=== PATIENT | female | born 1970 | race Caucasian/White ===

== ENCOUNTER 2020-05-23 07:18 | Outpatient (REF) | payer OTHER, SELFPAY ==
[2020-05-23 09:05] LABS: Basophils Percent Auto 0.5 % (0-2); Eosinophils Absolute Auto 0.2 X10*3/uL (0.0-0.4); Eosinophils Percent Auto 3.5 % (0-4); Hematocrit 40.5 % (37-47); Hemoglobin 13.1 g/dl (12.0-16.0); Imm Gran Abs Auto 0.02 X10*3/uL (0.00-0.03); Imm Gran Pct Auto 0.4 % (0.0-0.4); Lymphocytes Percent Auto 35.4 % (20-40); MANUAL DIFF FLAG NO; Mean Corpuscular HGB Conc 32.3 g/dl (31.0-35.0); Mean Platelet Volume 11.8 fL (9.4-12.3); Monocytes Absolute Auto 0.4 X10*3/uL (0.1-1.2); Monocytes Percent Auto 6.4 % (2-11); Neutrophils Percent Auto 53.8 % (45-73); Platelet Count 237 X10*3/uL (160-400); Red Blood Count 4.09 X10*6/uL (4.20-5.50); Red Cell Distribution Width 11.8 % (11.0-16.0); White Blood Count 5.7 X10*3/uL (4.8-10.8)
[2020-05-23 09:27] LABS: Alanine Aminotransferase 11 U/L (0-31); Albumin Level 4.2 g/dL (3.5-5.0); Alkaline Phosphatase 62 U/L (39-117); Anion Gap 12 (12-20); Aspartate Amino Transferase 18 U/L (5-31); Bilirubin Total 0.3 mg/dL (0.0-1.0); Blood Urea Nitrogen 13 mg/dL (9-16); Calcium 9.1 mg/dL (8.4-10.2); Carbon Dioxide 28 mmol/L (22-29); Chloride 104 mmol/L (96-108); Cholesterol 179 mg/dL; Estimated Glomerular Filt Rate > 60; Glucose Fasting 92 mg/dL (60-99); HDL Cholesterol 51 mg/dL; LDL Cholesterol Calculated 110 mg/dl; Potassium 4.8 mmol/l (3.3-5.1); Sodium 139 mmol/L (135-145); Total Protein 7.7 g/dL (6.5-8.0); Triglycerides 92 mg/dL
[2020-05-24 09:31] LABS: Rubella IgG Antibody 3.33 index
== END 2020-05-23 07:19 | disposition home or self-care (01) ==
LOC: HO.LAB 07:18
PROVIDERS: PCP Physician Assistant; Visit Provider Physician Assistant
DX: Z13.1 Encounter for screening for diabetes mellitus (principal); Z13.29 Encounter for screening for other suspected endocrine disorder; Z13.220 Encounter for screening for lipoid disorders; Z01.84 Encounter for antibody response examination
CPT/HCPCS: 36415; 80053; 80061; 84443; 85025; 86735; 86762; 86765

== ENCOUNTER 2020-06-05 10:08 | Outpatient (REF) | payer OTHER, SELFPAY | END 2020-06-05 10:09 | disposition home or self-care (01) | LOC: HO.LAB 10:08 | PROVIDERS: Visit Provider Obstetrics & Gynecology | DX: N90.4 Leukoplakia of vulva (principal) | CPT/HCPCS: 88305; 88312 ==

== ENCOUNTER 2021-04-08 09:07 | Outpatient (REF) | payer OTHER, SELFPAY ==
[2021-04-08 09:38] LABS: Hematocrit 38.1 % (37-47); Hemoglobin 12.6 g/dl (12.0-16.0); Mean Corpuscular HGB Conc 33.1 g/dl (31.0-35.0); Mean Corpuscular Hemoglobin 32.1 pg (27.0-33.0); Mean Corpuscular Volume 96.9 fL (80-98); Mean Platelet Volume 10.9 fL (9.4-12.3); Platelet Count 228 X10*3/uL (160-400); Red Blood Count 3.93 X10*6/uL (4.20-5.50); White Blood Count 5.3 X10*3/uL (4.8-10.8)
[2021-04-08 09:58] LABS: Alanine Aminotransferase 12 U/L (0-31); Albumin Level 4.1 g/dL (3.5-5.0); Alkaline Phosphatase 64 U/L (39-117); Anion Gap 10 (12-20); Aspartate Amino Transferase 19 U/L (5-31); Bilirubin Total 0.4 mg/dL (0.0-1.0); Blood Urea Nitrogen 15 mg/dL (9-16); Calcium 9.1 mg/dL (8.4-10.2); Carbon Dioxide 29 mmol/L (22-29); Chloride 106 mmol/L (96-108); Cholesterol 187 mg/dL; Estimated Glomerular Filt Rate > 60; Glucose Fasting 94 mg/dL (60-99); HDL Cholesterol 48 mg/dL; LDL Cholesterol Calculated 118 mg/dl; Potassium 4.5 mmol/L (3.3-5.1); Sodium 140 mmol/L (135-145); Total Protein 7.7 g/dL (6.5-8.0); Triglycerides 106 mg/dL
[2021-04-08 10:38] LABS: Creatinine Urine 148.74 mg/dL; Microalbum/Creatinine Ratio Ur 17.4 ug/mg cr
[2021-04-09 11:45] LABS: Follicle Stimulating Hormone 55.9 mIU/mL
[2021-04-16 02:46] LABS: Estradiol Free 0.25 pg/mL; Estradiol, Ultrasensitive 12 pg/mL
== END 2021-04-08 09:08 | disposition home or self-care (01) ==
LOC: HO.LAB 09:07
PROVIDERS: PCP Physician Assistant; Visit Provider Physician Assistant
DX: N95.1 Menopausal and female climacteric states (principal); I10 Essential (primary) hypertension
CPT/HCPCS: 36415; 80053; 80061; 82043; 82670; 82681; 83001; 84443; 85027

== ENCOUNTER 2021-06-10 10:25 | Outpatient (REF) | payer OTHER, SELFPAY ==
[2021-06-10 11:08] LABS: Hematocrit 35.9 % (37-47); Hemoglobin 11.8 g/dl (12.0-16.0); Mean Corpuscular HGB Conc 32.9 g/dl (31.0-35.0); Mean Corpuscular Hemoglobin 32.8 pg (27.0-33.0); Mean Corpuscular Volume 99.7 fL (80-98); Mean Platelet Volume 10.9 fL (9.4-12.3); Platelet Count 198 X10*3/uL (160-400); Red Cell Distribution Width 13.2 % (11.0-16.0)
[2021-06-10 11:41] LABS: Anion Gap 12 (12-20); Blood Urea Nitrogen 14 mg/dL (9-16); Calcium 9.3 mg/dL (8.4-10.2); Carbon Dioxide 28 mmol/L (22-29); Chloride 102 mmol/L (96-108); Cholesterol 174 mg/dL; Estimated Glomerular Filt Rate > 60; Glucose Random 84 mg/dL (60-115); HDL Cholesterol 45 mg/dL; LDL Cholesterol Calculated 105 mg/dl; Lipase 116 U/L (8-78); Potassium 4.5 mmol/L (3.3-5.1); Sodium 137 mmol/L (135-145); Triglycerides 123 mg/dL
[2021-06-10 12:04] LABS: TSH reflex Free T4 1.58 uIU/mL (0.32-4.0)
== END 2021-06-10 10:26 | disposition home or self-care (01) ==
LOC: HO.LAB 10:25
PROVIDERS: PCP Physician Assistant; Visit Provider Physician Assistant
DX: I10 Essential (primary) hypertension (principal); K21.9 Gastro-esophageal reflux disease without esophagitis; R74.8 Abnormal levels of other serum enzymes
CPT/HCPCS: 36415; 80048; 80061; 83690; 84443; 85027

== ENCOUNTER 2021-07-17 10:35 | Outpatient (REF) | payer OTHER, SELFPAY ==
[2021-07-17 11:33] LABS: Amylase 177 U/L (28-100); Gamma Glutamyl Transpeptidase 13 U/L (7-33); Lipase 135 U/L (8-78)
[2021-07-17 11:38] LABS: Hemoglobin 12.1 g/dl (12.0-16.0); Mean Corpuscular HGB Conc 32.7 g/dl (31.0-35.0); Mean Corpuscular Hemoglobin 32.4 pg (27.0-33.0); Mean Corpuscular Volume 98.9 fL (80.0-98.0); Mean Platelet Volume 11.8 fL (9.4-12.3); Platelet Count 212 X10*3/uL (160-400); Red Blood Count 3.74 X10*6/uL (4.20-5.50); Red Cell Distribution Width 12.6 % (11.0-16.0); White Blood Count 6.6 X10*3/uL (4.8-10.8)
== END 2021-07-17 10:36 | disposition home or self-care (01) ==
LOC: HO.LAB 10:35
PROVIDERS: PCP Physician Assistant; Visit Provider Physician Assistant
DX: R74.8 Abnormal levels of other serum enzymes (principal); R10.13 Epigastric pain
CPT/HCPCS: 36415; 82150; 82977; 83690; 85027; 87338

== ENCOUNTER → 2021-08-17 12:06 | Outpatient (BNVA) | payer OTHER, SELFPAY | PROVIDERS: PCP Physician Assistant; Referring Provider Physician Assistant; Visit Provider Nurse Practitioner Family ==

== ENCOUNTER 2021-08-18 15:01 | Outpatient (REF) | payer OTHER, SELFPAY ==
[2021-08-24 20:37] LABS: Pancreatic Elastase-1 >500 mcg/g
== END 2021-08-18 15:02 | disposition home or self-care (01) ==
LOC: HO.LNP 15:01
PROVIDERS: Visit Provider Nurse Practitioner Family
DX: R19.7 Diarrhea, unspecified (principal)
CPT/HCPCS: 82656

== ENCOUNTER 2021-09-01 14:45 | Outpatient (REF) | payer OTHER, SELFPAY ==
[2021-09-01 15:58] LABS: Blood Urea Nitrogen 13 mg/dL (9-16); Estimated Glomerular Filt Rate > 60
== END 2021-09-01 14:46 | disposition home or self-care (01) ==
LOC: HO.LAB 14:45
PROVIDERS: PCP Physician Assistant; Visit Provider Nurse Practitioner Family
DX: R10.11 Right upper quadrant pain (principal)
CPT/HCPCS: 36415; 82565; 84520

== ENCOUNTER 2021-09-02 08:27 | Outpatient (REF) | payer OTHER, SELFPAY ==
--- NOTE | ~2021-09-02 | CT_ITS ---
EXAMINATION: CT ABDOMEN AND PELVIS WITH CONTRAST CLINICAL INFORMATION: Abdominal pain COMPARISON: None TECHNIQUE: Multidetector volumetric images were obtained from the superior aspect of the liver through the pubic symphysis following administration 85 mL of Omnipaque 350 intravenous contrast. Sagittal and coronal reformatted images were obtained on the technologist's workstation. Oral contrast: Yes This CT examination was performed using dose optimization techniques as appropriate, variously including the following: *Automated exposure control *Adjustment of mA and/or kV according to patient size (this includes techniques or standardized protocols for targeted exams where dose is matched to indication/reason for exam; i.e. extremities or head) *Use of iterative reconstruction technique DLP: 219 mGy-cm FINDINGS: LUNG BASES: There is a 5 mm calcified right lower lobe nodule probably representing a calcified granuloma. LIVER, GALLBLADDER, AND BILIARY TREE: The liver is normal in size, shape, and attenuation. No focal hepatic lesion or biliary ductal dilatation is present. The gallbladder not seen and has presumably been removed. PANCREAS: Unremarkable. SPLEEN: Unremarkable. ADRENAL GLANDS: Unremarkable. KIDNEYS AND URETERS: The kidneys are normal in size, shape, and attenuation. No hydronephrosis, hydroureter, or calculi seen. No perinephric stranding. BLADDER: Unremarkable. GASTROINTESTINAL TRACT: There is stool throughout the colon questionable for constipation. The small and large bowel are otherwise unremarkable. The appendix is unremarkable. ABDOMINAL WALL: There are small umbilical and left inguinal hernias containing fat. LYMPH NODES: Normal. VASCULAR: Unremarkable. PELVIC VISCERA: There are prominent pelvic vessels, left greater than right, pelvic vessels questionable for pelvic congestion. Uterus and adnexa are unremarkable. OSSEOUS STRUCTURES: Unremarkable. CT/CT abdomen pelvis w con IMPRESSION: Stool throughout the colon questionable for constipation. Prominent left pelvic vessels questionable for pelvic congestion. Fleischner guidelines were followed.
[2021-09-02] MEDS: iohexoL 350 MG/ML 100 ML INFUS..BTL IV (11:15)
[2021-09-02] MEDS: Barium Sulfate Oral (Mocha) 450 ML ORAL.SUSP 900 ML PO (11:17)
--- NOTE | 2021-09-02 11:18 | ECG_ITS ---
Hook-up date: 2021-09-02 11:45:00 Duration: 27:12:00 Test Indications: HX TIA AND CEREBRAL INFARC Medications: [id number] QRS complexes * Ventricular ectopics which represent % of total QRS comp. 2 Supraventricular ectopics which represent <1 % of total QRS comp. * Paced QRS complexs which represent % of total QRS comp. VENTRICULAR ECTOPY * Isolated * Bigeminal Cycles * Couplets * Runs * Beats in Runs * Beats LONGEST at * BPM at :: -- * Beats FASTEST at * BPM at :: -- SUPRAVENTRICULAR ECTOPY 2 Isolated 0 Couplets 0 Runs 0 Beats in Runs * Beats LONGEST at * BPM at :: -- * Beats FASTEST at * BPM at :: -- HEART RATES 59 MIN at 05:24:08 2021-09-03 88 AVG 128 MAX at 11:48:21 2021-09-02 LONGEST RR 1.0480 secs at 00:54:04 2021-09-03 S-T LEVELS Channel 1 - 128 mm at 11:45:00 2021-09-02 - 128 mm at 11:45:00 2021-09-02 Channel 2 - 128 mm at 11:45:00 2021-09-02 - 128 mm at 11:45:00 2021-09-02 Channel 3 - 128 mm at 03:10:41 -- - 128 mm at 03:10:41 Basic rhythm Normal sinus rhythm No long pause or profound bradycardia No dangerous dysrhythm periods Patient did not report any symptoms in the diary Referred By: Stephen Rothman Overread By: KEKE MARTINEZ MD
== END 2021-09-02 08:28 | disposition home or self-care (01) ==
LOC: HO.CT 08:27
PROVIDERS: Visit Provider Nurse Practitioner Family
DX: R00.2 Palpitations (principal); R10.9 Unspecified abdominal pain; R74.8 Abnormal levels of other serum enzymes
CPT/HCPCS: 74177; 93225; 93226; Q9967

== ENCOUNTER → 2021-09-09 12:37 | Outpatient (BNVA) | payer OTHER, SELFPAY | PROVIDERS: PCP Physician Assistant; Visit Provider Obstetrics & Gynecology ==

== ENCOUNTER 2021-09-23 08:07 | Day surgery (SDC) | payer OTHER, SELFPAY ==
[2021-09-18 10:08] VITALS: BMI 22.1
--- NOTE | 2021-09-22 09:56 | HO.ANESPROP2 ---
Documented by User: Makenzie Bazan NP 09/22/21 09:57 HPI - Anesthesia Eval Consult details Narrative: 51yo F for Upper Endoscopy PMFSH Active Problems Active Problems: All Active Problems (Updated 09/09/21 @ 13:20 by Luis Miguel Dunlap MD) BPV (benign positional vertigo) (Acute) Lichen sclerosus (Acute) HTN (hypertension) (Acute) Perimenopause (Acute) CINTIA (generalized anxiety disorder) (Acute) SOB (shortness of breath) (Acute) Post-COVID syndrome (Acute) GERD (gastroesophageal reflux disease) (Acute) Elevated lipase (Acute) Nausea (Acute) Heart palpitations (Acute) Epigastric abdominal pain (Acute) Well woman exam (Acute) Anxiety and depression (Acute) Past Medical History Medical History (Updated 09/22/21 @ 09:56 by Makenzie Bazan NP) Anxiety and depression BPV (benign positional vertigo) GERD (gastroesophageal reflux disease) HTN (hypertension) Vulvar leukoplakia Family History Family History Father No problems noted. Mother No problems noted. Surgical History Surgical History (Updated 09/18/21 @ 10:06 by Kirti Shah RN) H/O tubal ligation Hx of cholecystectomy Hx of colonoscopy Social History Social History Housing: House Alcohol intake: never Patient Tobacco Use Status: Never used Tobacco e-Cigarette/Vaping Use: Never Used Second Hand Smoke Exposure: No Are you DNR?: No Advance Directives: No Advance Directives Information Provided: Yes Advance Directives on File: No service: No Current occupational status: employed Current occupation: [employer] Sexual orientation: Straight/Heterosexual Gender identity: Female Cognitive needs: No Hearing needs: No Vision needs: No Meds Allergies Allergy/AdvReac Type Severity Reaction Status Date / Time No Known Allergies Allergy Verified 09/23/21 08:23 Home Medications Medication Instructions Recorded Confirmed Last Taken Type docusate sodium 100 mg capsule 100 mg PO BEDTIME PRN 09/18/21 09/18/21 Unknown History Exam Exam Date and Time: September 22, 2021 0956 Height,Weight and Vital Signs: Height 5 ft 2 in Weight 54.885 kg Pertinent Lab Results Pertinent Lab Results: Laboratory Tests 10/07/17/21 09/01/21 10:40 10:41 14:57 WBC 6.6 Hgb 12.1 Hct 37.0 Plt Count 212 Sodium 137 Potassium 4.5 Chloride 102 Carbon Dioxide 28 BUN 13 Creatinine 0.80 Narrative Narrative: Holter 08/2021 Basic rhythm Normal sinus rhythm No long pause or profound bradycardia No dangerous dysrhythm periods Patient did not report any symptoms in the diary Assessment and Plan Assessment Anesthesia Assessment: Chart Reviewed Documented by User: Xin Dowell MD 09/23/21 08:57 [facility] Past Medical History Medical History (Updated 09/22/21 @ 09:56 by Makenzie Bazan NP) Anxiety and depression BPV (benign positional vertigo) GERD (gastroesophageal reflux disease) HTN (hypertension) Vulvar leukoplakia Family History Family History Father No problems noted. Mother No problems noted. Family history of problems with anesthesia: No Surgical History Surgical History (Updated 09/18/21 @ 10:06 by Kirti Shah RN) H/O tubal ligation Hx of cholecystectomy Hx of colonoscopy History of Problems with Anesthesia: No Social History Social History Housing: House Alcohol intake: never Patient Tobacco Use Status: Never used Tobacco e-Cigarette/Vaping Use: Never Used Second Hand Smoke Exposure: No Are you DNR?: No Advance Directives: No Advance Directives Information Provided: Yes Advance Directives on File: No service: No Current occupational status: employed Current occupation: [employer] Sexual orientation: Straight/Heterosexual Gender identity: Female Cognitive needs: No Hearing needs: No Vision needs: No Meds Allergies Allergy/AdvReac Type Severity Reaction Status Date / Time No Known Allergies Allergy Verified 09/23/21 08:23 Home Medications Medication Instructions Recorded Confirmed Last Taken Type docusate sodium 100 mg capsule 100 mg PO BEDTIME PRN 09/18/21 09/18/21 Unknown History Exam Airway Mallampati Class: II (Missing a couple teeth laterally) TM Dist: >3cm Neck ROM: Full Heart: rrr Lungs: cta Assessment and Plan Assessment Anesthesia Assessment: Anesthesia Plan Discussed and Chart Reviewed Final Anesthetic Review Family History of Problems with Anesthesia: No History of Problems with Anesthesia: No NPO: Yes ASA Class: II Final Preanesthetic Review: No Changes in Pt Med Stat, Meds/Allgs Chart Reviewed and Consent Obtained/Reviewed Patient Risk: Intermediate Procedure Risk: Intermediate Anesthetic Plan Anesthetic Plan: MAC: Disposition: Standard PACU
[2021-09-23 08:34] VITALS: BP 167/91; PULSE 110; RESP 16; TEMP 36.6; O2SAT 100
[2021-09-23] MEDS: Lactated Ringers 1,000 ML 100 ML IVCONT (08:48)
--- NOTE | 2021-09-23 09:07 | MHC.SHP ---
Pre-Procedural Eval Section A Date of Service: 09/23/21 Section B Chief Complaint: abdominal pain Relevant Family History (Specify if Yes): No Relevant Social History: None Present Medications: see Short Stay Collaborative assessment Medical History: Significant History (Anxiety and depression BPV (benign positional vertigo) GERD (gastroesophageal reflux disease) HTN (hypertension) Vulvar leukoplakia) History of Previous Operations: Relevant previous surgery/procedure and date(s) (H/O tubal ligation Hx of cholecystectomy Hx of colonoscopy) Allergies: Allergies Allergy/AdvReac Type Severity Reaction Status Date / Time No Known Allergies Allergy Verified 09/23/21 08:23 Review of Systems Sugical H&P ROS: Negative: Constitution, Cardiovascular, Respiratory, Neurological, Psychiatric, Hem-Onc, Allergic/Immunologic, Gastrointestinal, Genitourinary, Musculoskeletal, Integumentary, Endocrine and Eyes/Ears/Nose/Throat Exam Surgical H&P Exam: Normal: HEENT, Normal: Heart, Normal: Lungs, Normal: Extremities, Normal: Abdomen, Normal: Skin and Normal: Neurological Plan Diagnosis/Plan: Unchanged I have reviewed the history and physical and performed a pertinent physical examination on my patient. No changes have occurred unless specified.
--- NOTE | 2021-09-23 09:08 | P.BOP_ITS ---
Brief Operative Note Date of Service: 09/23/21 Pre-op diagnosis: abdominal pain Post-op diagnosis: same Procedure: see op note Surgeon: Shoaib Sterling MD Anesthesia: MAC Was an Building Inspector used for this Procedure?: No Estimated blood loss (mL): 0 Condition: stable Disposition: PACU
--- NOTE | 2021-09-23 09:32 | W.PM.OPN ---
Operative Note Operative Note Date of Service: 09/23/21 Narrative: Procedure Description: EGD FLEXIBLE TRANSORAL UPPER GASTROINTESTINAL ENDOSCOPY UPPER ENDOSCOPY Consent: Indications for the procedure and potential complications of bleeding, perforation, reaction to medications and missed diagnosis were discussed with the patient and informed consent was obtained. Instrument: Olympus GIF H 190 J mid size upper endoscope Monitoring: Vital signs and clinical assessment, continuous EKG monitoring, Pulse oximetry, Carbon Dioxide monitoring and blood pressure monitoring were done throughout the procedure. Procedure: The patient was placed in the left lateral decubitis position and pre-procedure medications were administered and a bite block was placed. The endoscope was inserted into the mouth and advanced under direct vision to the third part of duodenum. A careful inspection was made as the upper endoscope was withdrawn including a retroflexed examination of the proximal stomach; Findings and interventions are described below. Findings: Larynx:normal Esophagus: GE junction at 38 cm, diaphragm hiatus at 38 cm, no varices or esophagitis, random esophagus bx taken and from GEJ Stomach: Mild patchy gastric erythema and granularity. Biopsies were obtained. Grade 2 flap valve on retroflexed examination of the cardia. Duodenum: Normal bulb and descending duodenum, bx taken Intervention: Biopsies as noted above Impression/Findings: mild gastritis PLAN: await results, she said she has been doing better recently if h pylori pos then treat
[2021-09-23 09:38] VITALS: BP 92/53; PULSE 86; RESP 16; TEMP 36.6; O2SAT 96
[2021-09-23 09:53] VITALS: BP 119/70; PULSE 82; RESP 16; TEMP 36.6; O2SAT 96
== END 2021-09-23 10:48 | disposition home or self-care (01) ==
PROVIDERS: PCP Physician Assistant; Visit Provider Internal Medicine Gastroenterology
PROC: 0DJ08ZZ Inspection of Upper Intestinal Tract, Via Natural or Artificial Opening Endoscopic (ICD-10-PCS; CPT 43235; principal; 2021-09-23 09:30)
DX: R10.13 Epigastric pain (principal); K29.50 Unspecified chronic gastritis without bleeding; K21.9 Gastro-esophageal reflux disease without esophagitis; K44.9 Diaphragmatic hernia without obstruction or gangrene; R74.8 Abnormal levels of other serum enzymes; I10 Essential (primary) hypertension; N90.4 Leukoplakia of vulva; F32.9 Major depressive disorder, single episode, unspecified; Z90.49 Acquired absence of other specified parts of digestive tract; Z79.899 Other long term (current) drug therapy
CPT/HCPCS: 43239; 88305; 88342

== ENCOUNTER 2021-10-01 10:59 | Outpatient (REF) | payer OTHER, SELFPAY ==
[2021-10-01 11:36] LABS: Hematocrit 36.5 % (37.0-47.0); Hemoglobin 11.9 g/dl (12.0-16.0); Mean Corpuscular HGB Conc 32.6 g/dl (31.0-35.0); Mean Corpuscular Hemoglobin 32.2 pg (27.0-33.0); Mean Corpuscular Volume 98.6 fL (80.0-98.0); Mean Platelet Volume 11.1 fL (9.4-12.3); Platelet Count 210 X10*3/uL (160-400); Red Cell Distribution Width 12.2 % (11.0-16.0); White Blood Count 5.5 X10*3/uL (4.8-10.8)
[2021-10-01 12:02] LABS: Alanine Aminotransferase 16 U/L (0-31); Albumin Level 4.1 g/dL (3.5-5.0); Alkaline Phosphatase 72 U/L (39-117); Anion Gap 10 (12-20); Aspartate Amino Transferase 22 U/L (5-31); Bilirubin Total 0.3 mg/dL (0.0-1.0); Blood Urea Nitrogen 16 mg/dL (9-16); Calcium 9.4 mg/dL (8.4-10.2); Carbon Dioxide 29 mmol/L (22-29); Chloride 106 mmol/L (96-108); Estimated Glomerular Filt Rate > 60; Glucose Fasting 94 mg/dL (60-99); Potassium 4.5 mmol/L (3.3-5.1); Sodium 140 mmol/L (135-145); Total Protein 7.8 g/dL (6.5-8.0)
[2021-10-01 12:23] LABS: TSH reflex Free T4 1.97 uIU/mL (0.32-4.0)
== END 2021-10-01 11:00 | disposition home or self-care (01) ==
LOC: HO.LAB 10:59
PROVIDERS: PCP Physician Assistant; Visit Provider Physician Assistant
DX: I10 Essential (primary) hypertension (principal); R63.4 Abnormal weight loss
CPT/HCPCS: 36415; 80053; 84443; 85027

== ENCOUNTER 2021-10-14 11:32 | Outpatient (REF) | payer OTHER, SELFPAY ==
[2021-10-14 12:37] LABS: Hematocrit 35.9 % (37.0-47.0); Hemoglobin 11.7 g/dl (12.0-16.0); Mean Corpuscular HGB Conc 32.6 g/dl (31.0-35.0); Mean Corpuscular Volume 98.1 fL (80.0-98.0); Mean Platelet Volume 10.8 fL (9.4-12.3); Platelet Count 198 X10*3/uL (160-400); Red Blood Count 3.66 X10*6/uL (4.20-5.50); Red Cell Distribution Width 12.4 % (11.0-16.0); White Blood Count 7.5 X10*3/uL (4.8-10.8)
[2021-10-14 13:19] LABS: Lipase 68 U/L (8-78)
[2021-10-14 14:25] LABS: Amylase 135 U/L (28-100)
== END 2021-10-14 11:33 | disposition home or self-care (01) ==
LOC: HO.LAB 11:32
PROVIDERS: PCP Physician Assistant; Referring Provider Physician Assistant; Visit Provider Nurse Practitioner Family
DX: R74.8 Abnormal levels of other serum enzymes (principal); R19.7 Diarrhea, unspecified; I10 Essential (primary) hypertension; K21.9 Gastro-esophageal reflux disease without esophagitis
CPT/HCPCS: 36415; 82150; 83690; 85027; 99212

== ENCOUNTER 2021-10-15 14:18 | Outpatient (REF) | payer OTHER, SELFPAY ==
--- NOTE | ~2021-10-15 | MM_ITS ---
EXAMINATION: MM SCREENING DIGITAL BREAST TOMOSYNTHESIS, BILATERAL CLINICAL INFORMATION: Screening. Asymptomatic. The lifetime risk of breast cancer based on the Tyrer-Cuzick Model is 6%. COMPARISON: Outside mammography: 03/23/2018, 12/15/2015 TECHNIQUE: Digital breast tomosynthesis is performed in both the craniocaudal and mediolateral oblique views along with computer-aided detection (CAD). Synthesized 2D images are generated from the tomosynthesis. FINDINGS: There are scattered areas of fibroglandular density (ACR BI-RADS breast composition Category b). There are no significant masses, abnormal calcifications, or other abnormalities. Parenchymal pattern is similar to prior outside exams. The axilla and skin contours are unremarkable. There are no significant changes. MM/MM tomosynthesis screening BI IMPRESSION: No mammographic evidence of malignancy. ASSESSMENT: BI-RADS 1: Negative RECOMMENDATION: Routine annual mammography screening. This patient's information was entered into a reminder system with a target due date for their next mammogram.
== END 2021-10-15 14:19 | disposition home or self-care (01) ==
LOC: HO.MAMMO 14:18
PROVIDERS: PCP Physician Assistant; Visit Provider Obstetrics & Gynecology
DX: Z12.31 Encounter for screening mammogram for malignant neoplasm of breast (principal)
CPT/HCPCS: 77063; 77067

== ENCOUNTER 2022-04-23 08:05 | Outpatient (REF) | payer OTHER, SELFPAY ==
[2022-04-23 08:52] LABS: Hematocrit 37.6 % (37.0-47.0); Hemoglobin 12.4 g/dl (12.0-16.0); Mean Corpuscular Hemoglobin 31.9 pg (27.0-33.0); Mean Corpuscular Volume 96.7 fL (80.0-98.0); Mean Platelet Volume 11.1 fL (9.4-12.3); Platelet Count 206 X10*3/uL (160-400); Red Blood Count 3.89 X10*6/uL (4.20-5.50)
[2022-04-23 09:18] LABS: Alanine Aminotransferase 14 U/L (0-31); Albumin Level 4.1 g/dL (3.5-5.0); Alkaline Phosphatase 72 U/L (39-117); Anion Gap 16 (12-20); Aspartate Amino Transferase 19 U/L (5-31); Bilirubin Total 0.4 mg/dL (0.0-1.0); Blood Urea Nitrogen 19 mg/dL (9-16); Calcium 9.3 mg/dL (8.4-10.2); Carbon Dioxide 26 mmol/L (22-29); Chloride 104 mmol/L (96-108); Cholesterol 200 mg/dL; Estimated Glomerular Filt Rate > 60; Glucose Fasting 92 mg/dL (60-99); HDL Cholesterol 58 mg/dL; LDL Cholesterol Calculated 127 mg/dl; Potassium 4.3 mmol/L (3.3-5.1); Sodium 142 mmol/L (135-145); Total Protein 7.8 g/dL (6.5-8.0); Triglycerides 79 mg/dL
[2022-04-23 09:41] LABS: TSH reflex Free T4 2.86 uIU/mL (0.32-4.0)
== END 2022-04-23 08:06 | disposition home or self-care (01) ==
LOC: HO.LAB 08:05
PROVIDERS: PCP Physician Assistant; Visit Provider Physician Assistant
DX: I10 Essential (primary) hypertension (principal); R00.0 Tachycardia, unspecified
CPT/HCPCS: 36415; 80053; 80061; 84443; 85027

== ENCOUNTER → 2022-06-08 09:09 | Outpatient (BNVA) | payer OTHER, SELFPAY | PROVIDERS: PCP Physician Assistant; Visit Provider Nurse Practitioner Family | DX: K21.9 Gastro-esophageal reflux disease without esophagitis (principal); R74.8 Abnormal levels of other serum enzymes | CPT/HCPCS: 99212 ==

== ENCOUNTER → 2022-09-07 13:31 | Outpatient (BNVA) | payer OTHER, SELFPAY | PROVIDERS: PCP Physician Assistant; Visit Provider Nurse Practitioner Family | DX: K21.9 Gastro-esophageal reflux disease without esophagitis (principal); R11.0 Nausea; R10.13 Epigastric pain | CPT/HCPCS: 99212 ==

== ENCOUNTER 2023-03-01 11:43 | Outpatient (REF) | payer OTHER, SELFPAY | END 2023-03-01 11:44 | disposition home or self-care (01) | LOC: HO.LAB 11:43 | PROVIDERS: PCP Physician Assistant; Visit Provider Nurse Practitioner Family | DX: R10.13 Epigastric pain (principal); R11.0 Nausea; K21.9 Gastro-esophageal reflux disease without esophagitis | CPT/HCPCS: 99212 ==

== ENCOUNTER 2023-03-01 11:43 | Outpatient (AMB) | payer OTHER, SELFPAY ==
--- NOTE | 2023-03-01 11:55 | MHC.OFFVIS ---
Intake Vital Signs 03/01/23 11:56 Height 5 ft 2 in Weight 131 lb 13.383 oz BMI 24.1 BP 145/71 H Blood Pressure Location Lt brachial Position Sitting Pulse 104 H Intake Visit Reasons: follow up Intake Note: Nolvia presents in office as a est.patient for a f/u for epigastric abdominal pain. 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 Discussed with patient avoiding dietary triggers in late night snacking. Staying upright for minimal 3 hours after meals discussed with patient. Patient is following with a therapist that helps her with an anxiety and depression Nausea Occasional nausea and feeling like she something is stuck in her throat. Patient states that he feels like it happens and she is anxious. She did not noticed if any food causes her feeling nauseous. She will pay closer attention Epigastric abdominal pain Patient reports the feeling epigastric discomfort not always related to the food she eats. Patient stated she feels like there is the knot stuck in her stomach. Continue taking omeprazole. Avoid dietary triggers and late night snacking. I will see patient in 2 months, sooner on as needed basis. Patient is agreeable to plan and verbalizes understanding of instructions. She was given the opportunity to ask questions and all questions answered. ? Thank you for allowing me to participate in her care Plan Medications Refilled omeprazole 20 mg PO DAILY 90 caps 1RF TODAY'S VISIT Patient is here today for follow-up. Patient reports that she is taking omeprazole every morning and states that she continues to have occasional epigastric discomfort with dyspepsia without dysphagia or odynophagia. Patient states that she will feel nauseous sometimes depending on what she eats. Usually when she has dyspepsia and heartburn that is when she starts to feel nauseous. Patient denies any vomiting. Denies any issues with moving her bowels. Patient does have a history of on BuSpar. Patient denies melena, hematochezia, unintentional weight loss or ribbon like stools. Patient had upper endoscopy in September of 2021 that showed mild gastritis, no H pylori. Patient had elevated amylase last year we will repeated today. Patient had normal lipase. PFSH Medical History BPV (benign positional vertigo) Elevated lipase GERD (gastroesophageal reflux disease) HTN (hypertension) Post-COVID syndrome Vulvar leukoplakia Surgical History H/O tubal ligation Hx of cholecystectomy Hx of colonoscopy Hx of esophagogastroduodenoscopy Family History Father HTN (hypertension) Depression Anxiety Mother Asthma Depression Anxiety CAD (coronary artery disease) Social History Housing: House Alcohol intake: never Patient Tobacco Use Status: Never used Tobacco e-Cigarette/Vaping Use: Never Used Second Hand Smoke Exposure: No service: No Current occupational status: unemployed Sexual orientation: Straight/Heterosexual Gender identity: Female Cognitive needs: No Hearing needs: No Vision needs: No Female Reproductive History Menstrual Age of Menarche: 11 Review of Systems Const Denies weight gain and Denies weight loss ENT Reports no additional complaints, Denies dysphagia and Denies odynophagia Card Reports no additional complaints Resp Reports no additional complaints GI Denies abdominal pain, Denies belching, Denies melena, Denies bloating, Denies change in bowel habits, Denies dysphagia, Denies excessive flatus, Reports dyspepsia, Reports heartburn, Denies diarrhea, Denies loose stools, Reports nausea, Denies odynophagia and Denies vomiting Reports no additional complaints Musc Reports no additional complaints Neuro Reports no additional complaints Psych Reports no additional complaints Endo Reports no additional complaints Physical Exam Vital Signs: Last Vital Signs Pulse 104 H 03/01/23 11:56 BP 145/71 H 03/01/23 11:56 BMI result Body Mass Index 24.1 Const General: healthy appearing, no acute distress and well developed Nutritional Appearance: well nourished Orientation/consciousness: patient oriented x3 HEENT Head: Yes normal to inspection, Yes normocephalic and Yes atraumatic Face and sinus: Yes normal facial exam Mouth: Normal oral and palatal mucosa present Throat: Yes posterior oropharynx normal, Yes tonsils normal and Yes uvula midline Eyes General: appearance normal, both eyes and all related structures Neck Neck: Yes normal visual inspection, Yes full ROM and Yes trachea midline Thyroid: Thyroid normal Resp Effort & Inspection: normal respiratory effort, able to speak in complete sentences, no tracheal deviation and symmetric chest movement Auscultation: clear to auscultation bilaterally Cardio Rate: regular rate Heart sounds: S1 normal heart sound present and S2 normal heart sound present GI Inspection: Yes normal to inspection and No distended Palpation (GI): Soft to palpation, not firm, nontender and No hepatosplenomegaly present Auscultation: normal bowel sounds General: Yes no CVA tenderness Back/Spine/Pelvis Back: no CVA tenderness Skin General skin exam: elasticity normal, turgor normal and dry skin Neuro General: patient oriented x3 Psych Appearance: grossly normal Mental Status: mental status grossly normal Speech and movement: Normal speech and movement present Assessment & Plan Assessment & Plan (1) GERD (gastroesophageal reflux disease): Code(s): K21.9 - Gastro-esophageal reflux disease without esophagitis Qualifiers: Esophagitis presence: without esophagitis Qualified Code(s): K21.9 - Gastro-esophageal reflux disease without esophagitis Plan: Continue omeprazole every morning half an hour before breakfast. Patient was encouraged to avoid dietary triggers late night snacking. Staying upright for minimal 3 hours after meals discussed with patient. (2) Nausea: Code(s): R11.0 - Nausea Plan: Patient reports nausea., discussed with patient avoiding dietary triggers. (3) Epigastric abdominal pain: Code(s): R10.13 - Epigastric pain Plan: Patient continues with occasional epigastric abdominal discomfort. Patient was encouraged to avoid dietary triggers. Avoid lactose and gluten. Will check lipase and amylase. I will see her in 3 months, sooner on as needed basis. Patient is agreeable to this plan and verbalizes understanding of instructions. She was given the opportunity to ask questions and all questions answered. Thank you for allowing me to participate in her care Orders: Orders Amylase 03/04/23 K21.9 - Gastro-esophageal reflux disease without esophagitis Lipase 03/04/23 R10.9 - Unspecified abdominal pain Medications: Refilled omeprazole 20 mg PO DAILY 90 caps 1RF Coding Level of Care Code Est Pt Level 4 (53291) Diagnoses GERD (gastroesophageal reflux disease) K21.9 Esophagitis presence: without esophagitis Nausea R11.0 Epigastric abdominal pain R10.13 Time Spent (min) 35 Comment 20 minutes spent with patient and additional 15 minutes spent reviewing her records
[2023-03-01 11:56] VITALS: BP 145/71; PULSE 104; BMI 24.1
== END 2023-03-01 12:38 | disposition home or self-care (01) ==
PROVIDERS: PCP Physician Assistant; Visit Provider Nurse Practitioner Family
DX: K21.9 Gastro-esophageal reflux disease without esophagitis (principal); R11.0 Nausea; R10.13 Epigastric pain
CPT/HCPCS: 99214

== ENCOUNTER 2023-03-04 09:34 | Outpatient (REF) | payer OTHER, SELFPAY ==
[2023-03-04 10:41] LABS: Hematocrit 38.5 % (37.0-47.0); Hemoglobin 12.4 g/dl (12.0-16.0); Mean Corpuscular HGB Conc 32.2 g/dl (31.0-35.0); Mean Corpuscular Hemoglobin 31.4 pg (27.0-33.0); Mean Corpuscular Volume 97.5 fL (80.0-98.0); Mean Platelet Volume 11.6 fL (9.4-12.3); Platelet Count 194 X10*3/uL (160-400); Red Blood Count 3.95 X10*6/uL (4.20-5.50); White Blood Count 6.2 X10*3/uL (4.8-10.8)
[2023-03-04 11:07] LABS: Alanine Aminotransferase 13 U/L (0-31); Albumin Level 3.9 g/dL (3.5-5.0); Alkaline Phosphatase 75 U/L (39-117); Anion Gap 9 (12-20); Aspartate Amino Transferase 22 U/L (5-31); Bilirubin Total 0.3 mg/dL (0.0-1.0); Blood Urea Nitrogen 22 mg/dL (9-16); Calcium 9.4 mg/dL (8.4-10.2); Carbon Dioxide 28 mmol/L (22-29); Chloride 108 mmol/L (96-108); Cholesterol 183 mg/dL; Estimated Glomerular Filt Rate > 60; Glucose Fasting 87 mg/dL (60-99); HDL Cholesterol 52 mg/dL; LDL Cholesterol Calculated 113 mg/dl; Lipase 59 U/L (8-78); Sodium 141 mmol/L (135-145); Total Protein 7.6 g/dL (6.5-8.0); Triglycerides 94 mg/dL
[2023-03-04 11:14] LABS: Amylase 143 U/L (28-100)
== END 2023-03-04 09:35 | disposition home or self-care (01) ==
LOC: HO.LAB 09:34
PROVIDERS: PCP Physician Assistant; Visit Provider Nurse Practitioner Family
DX: R10.9 Unspecified abdominal pain (principal); K21.9 Gastro-esophageal reflux disease without esophagitis; I10 Essential (primary) hypertension
CPT/HCPCS: 36415; 80053; 80061; 82150; 83690; 85027

== ENCOUNTER 2023-05-02 15:05 | Outpatient (AMB) | payer OTHER, SELFPAY ==
[2023-05-02 15:07] VITALS: BP 132/80; BMI 24.0
--- NOTE | 2023-05-02 15:07 | MHC.OFFVIS ---
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 Last Pap smear/HPV were negative in 2019. Last mammogram was BI-RADS 1 in 11/01. Last colonoscopy was in 2018, the patient states that she was told that her next screening colonoscopy is in 2028 [facility] Medical History Elevated lipase GERD (gastroesophageal reflux disease) Post-COVID syndrome BPV (benign positional vertigo) Vulvar leukoplakia HTN (hypertension) Surgical History Hx of esophagogastroduodenoscopy Hx of colonoscopy H/O tubal ligation Hx of cholecystectomy Family History Father HTN (hypertension) Depression Anxiety Mother Asthma Depression Anxiety CAD (coronary artery disease) Social History Housing: House Alcohol intake: never Patient Tobacco Use Status: Never used Tobacco e-Cigarette/Vaping Use: Never Used Second Hand Smoke Exposure: No service: No Current occupational status: unemployed Sexual orientation: Straight/Heterosexual Gender identity: Female Cognitive needs: No Hearing needs: No Vision needs: No Female Reproductive History Menstrual Age of Menarche: 11 control method: permanent sterilization Total pregnancies: 2 Full term: 2 Number of Living Children: 2 Date of Mammogram: 10/15/21 Review of Systems Const All systems reviewed & are unremarkable except as noted in HPI and below Card Reports as per HPI Resp Reports as per HPI GI Reports as per HPI and Reports no additional complaints Reports as per HPI Physical Exam Const General: cooperative, healthy appearing and comfortable Chest Chest palpation & inspection: normal inspection of the chest and normal palpation of entire chest wall Breast/axilla inspection: normal inspection of the breasts and normal inspection of the axillae Breast/axilla palpation: normal palpation of the breasts, normal palpation of the axillae and no axillary lymphadenopathy Resp Effort & Inspection: normal respiratory effort Auscultation: clear to auscultation bilaterally Percussion: percussion normal Cardio Palpation: normal PMI Rate: regular rate Rhythm: regular rhythm Heart sounds: no murmurs and no rubs Peripheral pulses: Peripheral pulses 2+ throughout GI Inspection: Yes normal to inspection Palpation (GI): Soft to palpation, nontender, no guarding, not rigid and No hepatosplenomegaly present Percussion: Yes normal to percussion Auscultation: normal bowel sounds Rectal Exam - Female: deferred General: Yes bladder normal to palpation External Female Exam: No lesion Speculum Exam - Vagina: normal appearance of the vagina, normal palpation, normal vaginal discharge and not erythematous Speculum Exam - Cervix: normal appearance of the cervix and normal palpation Bimanual exam- vagina & uterus: normal bimanual exam, normal palpation, uterine size normal, bladder normal to palpation, consistency normal and normal palpation Bimanual Exam- Adnexa, other: normal adnexae, no masses and no tenderness Assessment & Plan Assessment & Plan (1) Well woman exam: Code(s): Z01.419 - Encounter for gynecological examination (general) (routine) without abnormal findings Plan: Co testing at indicated this year. Counseled the patient about the recommended dietary allowance of 1200 mg of Calcium & 600 IU of vitamin D. Mammogram ordered. The patient was instructed to perform monthly self-breast exams and schedule annual exam in a year; all questions answered and the patient verbalized understanding. Orders: Orders MM screening mammo BI Today Z12.31 - Encounter for screening mammogram for malignant neoplasm of breast Coding Level of Care Code Est Pt Prev Care 40-64y(82028) Diagnoses Well woman exam Z01.419
== END 2023-05-02 15:25 | disposition home or self-care (01) ==
LOC: HO.HWS 15:05
PROVIDERS: PCP Physician Assistant; Visit Provider Obstetrics & Gynecology
DX: Z01.419 Encounter for gynecological examination (general) (routine) without abnormal findings (principal)
CPT/HCPCS: 99396

== ENCOUNTER → 2023-05-02 15:05 | Outpatient (BNVA) | payer OTHER, SELFPAY | PROVIDERS: PCP Physician Assistant; Visit Provider Obstetrics & Gynecology | DX: Z01.419 Encounter for gynecological examination (general) (routine) without abnormal findings (principal) | CPT/HCPCS: 99396 ==

== ENCOUNTER → 2023-05-17 09:00 | Outpatient (BNV) | payer OTHER, SELFPAY | PROVIDERS: PCP Physician Assistant; Visit Provider Radiology Diagnostic Radiology | DX: Z12.31 Encounter for screening mammogram for malignant neoplasm of breast (principal) | CPT/HCPCS: 77063; 77067 ==

== ENCOUNTER 2023-05-17 09:20 | Outpatient (REF) | payer OTHER, SELFPAY ==
--- NOTE | ~2023-05-17 | MM_ITS ---
EXAMINATION: MM SCREENING DIGITAL BREAST TOMOSYNTHESIS, BILATERAL CLINICAL INFORMATION: Screening. Asymptomatic. COMPARISON: Mammography: This study is compared with prior exams dating back to 2016. TECHNIQUE: Digital breast tomosynthesis is performed in both the craniocaudal and mediolateral oblique views along with computer-aided detection (CAD). Synthesized 2D images are generated from the tomosynthesis. FINDINGS: There are scattered areas of fibroglandular density (ACR BI-RADS breast composition Category b). There are no significant masses, abnormal calcifications, or other abnormalities. MM/MM tomosynthesis screening BI IMPRESSION: No mammographic evidence of malignancy. ASSESSMENT: BI-RADS BI-RADS 1 - Negative RECOMMENDATION: Routine annual mammography screening. 1 year F/U This examination should not preclude the clinical evaluation of a suspicious palpable abnormality. This patient's information was entered into a reminder system with a target due date for their next mammogram.
== END 2023-05-17 09:21 | disposition home or self-care (01) ==
LOC: HO.MAMMO 09:20
PROVIDERS: PCP Physician Assistant; Visit Provider Obstetrics & Gynecology
DX: Z12.31 Encounter for screening mammogram for malignant neoplasm of breast (principal)
CPT/HCPCS: 77063; 77067

== ENCOUNTER 2023-06-01 11:28 | Outpatient (AMB) | payer OTHER, SELFPAY ==
[2023-06-01 11:31] VITALS: BP 152/82; PULSE 110; RESP 16; O2SAT 99; BMI 23.8
--- NOTE | 2023-06-01 11:31 | MHC.PC.OV ---
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: No Accompanied by: Self / Same As Patient Allergies No Known Allergies Allergy (Verified 06/01/23 11:38) Medication List - Last Reconciled 06/01/23 by Stephen Rothman PA-C buspirone 10 mg PO BID meclizine 25 mg PO BID PRN 7 days omeprazole 20 mg PO DAILY tizanidine 2 mg PO Q8H PRN 5 days venlafaxine ER 37.5 mg PO DAILY Tobacco use date assessed: 12/30/22 Dental Screening Dental Screen Date: 06/01/23 Did you have a dental visit in the last 12 months?: Yes Did you have a dental problem in the last 6 months where you did not have access to dental care?: No Was dental information given to patient?: Patient has dentist HPI f/u Labs/ Anxiety HPI Details Pt is a 53 y/o F here today for a follow-up visit. Patient has a past medical history significant hypertension, GERD, post COVID anxiety. GERD : Followed by GI, continues on omeprazole 20 mg with good relief of her GERD symptoms. . concerns--> reports having intermittent episodes of dizziness associated with head movements and change in body position. Has not used any wshf-wor-dhctuue motion sickness medication. She does take meclizine with good effect. Offered her vestibular therapy referral though she declines. She also reports having widespread bone pain without any recent evidence trauma. She does report having a family history of fibromyalgia. Has been taking tizanidine on a as needed basis. . Anxiety:? She is now speaking with a mental health therapist whom she likes.? Recently started on effexor. She continues on BuSpar 10 mg b.i.d. with decent affect on reducing her anxiety.? Unfortunately at this time she has not been able to return back to work due to her severe anxiety. .. Hypertension:? Blood pressure slightly elevated today in office. She does not monitor blood pressure regularly at home. Was on blood pressure medication in the past though had side effects to a lot of the blood pressure medications including lisinopril, metoprolol and amlodipine. I suspect she has an element of white coat hypertension and advised to regularly monitor blood pressure at home with goal blood pressure to be below 140/90. [facility] Medical History Elevated lipase GERD (gastroesophageal reflux disease) Post-COVID syndrome BPV (benign positional vertigo) Vulvar leukoplakia HTN (hypertension) Surgical History Hx of esophagogastroduodenoscopy Hx of colonoscopy H/O tubal ligation Hx of cholecystectomy Family History Father HTN (hypertension) Depression Anxiety Mother Asthma Depression Anxiety CAD (coronary artery disease) Social History Housing: House Alcohol intake: never Patient Tobacco Use Status: Never used Tobacco e-Cigarette/Vaping Use: Never Used Second Hand Smoke Exposure: No service: No Current occupational status: unemployed Sexual orientation: Straight/Heterosexual Gender identity: Female Cognitive needs: No Hearing needs: No Vision needs: No Female Reproductive History Menstrual Age of Menarche: 11 Questionnaire Thrive Questionnaire Date Thrive assessed: 11/22/22 CINTIA-7 AMB Questionnaire CINTIA-7 Date CINTIA - 7 assessed: 12/30/22 Source: Developed by Drs. Edin Dudley, Abi Millard, Sebastian Galvez and colleagues, with an educational radha from [employer]. Review of Systems Const Denies headache(s) Eyes Denies loss of vision ENT Denies vertigo, Denies dizziness, Denies headache(s) and Denies sore throat Card Denies chest pain, Denies leg edema and Denies lightheadedness Resp Denies cough, Denies hemoptysis and Denies wheezing GI Denies abdominal pain, Denies melena, Denies constipation, Denies diarrhea and Denies vomiting Denies urinary frequency, Denies dysuria and Denies urinary urgency Musc Denies arthralgias, Denies joint swelling, Denies numbness and Denies tingling Neuro Denies Abnormal speech present, Denies behavioral changes, Denies vertigo, Denies dizziness, Denies headache(s), Denies loss of vision, Denies memory loss, Denies numbness and Denies tingling Psych Denies anxiety, Denies behavioral changes, Denies depression, Denies memory loss and Denies panic attacks Torrey/Lymph Denies easy bleeding and Denies easy bruising Aller/Immun Denies wheezing Physical exam (Primary Care) Vital Signs: Last Vital Signs Pulse 110 H 06/01/23 11:31 Resp 16 06/01/23 11:31 BP 150/90 H 06/01/23 11:47 Pulse Ox 99 06/01/23 11:31 Oxygen Delivery Method Room Air 06/01/23 11:31 BMI result Body Mass Index 23.8 Tobacco/Smoking Status: Tobacco use Status Tobacco use date assessed 12/30/22 06/01/23 11:31 Patient Tobacco Use Status Never used Tobacco 06/01/23 11:31 e-Cigarette/Vaping Use Never Used 06/01/23 11:31 Thrive Assessment: Date of Thrive Assessment Date Thrive assessed 11/22/22 06/01/23 11:31 Const General: healthy appearing, no acute distress, alert and awake Nutritional Appearance: well nourished Orientation/consciousness: oriented to person, oriented to place and oriented to time HENMT Ears: TM's normal bilaterally General nose exam: Normal nasal mucous membranes and turbinates present Eyes Conjunctivae: conjunctivae normal Sclerae: sclerae normal Pupils: Equal, round and reactive pupils present Neck Neck: Yes no lymphadenopathy and Yes no JVD Thyroid: Thyroid normal Carotids: no bruits Resp Effort & Inspection: normal respiratory effort and not tachypneic Auscultation: no crackles, no rales, no rhonchi and no wheezes Cardio Rate: regular rate Rhythm: regular rhythm Heart sounds: no murmurs and normal S1 and S2 GI Palpation (GI): Soft to palpation, nontender, no hepatomegaly and no splenomegaly Auscultation: normal bowel sounds Skin General skin exam: no rashes or lesions noted and dry skin Neuro General: oriented to person, oriented to place and oriented to time Cranial nerves: Yes Equal, round and reactive pupils present Speech: No Abnormal speech present Gait exam (Neuro): Normal gait present Motor exam (neuro): no tremor noted Extrem Right upper extremity: full ROM Left upper extremity: full ROM Right lower extremity: full ROM; no edema Left lower extremity: full ROM; no edema Psych Mental Status: mental status grossly normal Speech and movement: Normal speech and movement present Affect: normal affect Attitude: cooperative Thought process: Normal thought process present Assessment and Plan Assessment & Plan (1) Fibromyalgia: Code(s): M79.7 - Fibromyalgia Plan: Patient reports widespread pain in her shoulders, elbows, lower back. No trauma history. Likely has fibromyalgia. Will supply patient with low-dose tizanidine to use on a p.r.n. basis for her pain. (2) Vertigo: Code(s): R42 - Dizziness and giddiness Plan: Patient reports intermittent dizziness associated with change in body position and head movements. Will supply with meclizine to use on a p.r.n. basis for dizziness. I would advised on vestibular therapy and patient will try Saurabh maneuvers at home. (3) CINTIA (generalized anxiety disorder): Code(s): F41.1 - Generalized anxiety disorder Plan: Patient continues to speak with a mental health therapist and continues on BuSpar which has been help for for her anxiety. Has also been started on new depression medication-- > effexor Still on disability and unable to work due to her anxiety. (4) HTN (hypertension): Code(s): I10 - Essential (primary) hypertension Qualifiers: Hypertension type: essential hypertension Qualified Code(s): I10 - Essential (primary) hypertension Plan: Patient has has a history of hypertension though has not been able to tolerate antihypertensive medication. Has been able to manage her blood pressure without medication at this time. Today's blood pressure in office acceptable. Goal blood pressure to be below 140/90 Orders: Orders Microalbumin, Random (w Creat) Today I10 - Essential (primary) hypertension Comprehensive [place]. Panel Fast Today I10 - Essential (primary) hypertension Complete Blood Count no Diff Today I10 - Essential (primary) hypertension Medications: Refilled meclizine 25 mg PO BID 7 days PRN 14 tabs 1RF dizziness R42 - Dizziness and giddiness tizanidine 2 mg PO Q8H 5 days PRN 15 tabs 0RF muscle spasticity M79.7 - Fibromyalgia Coding Level of Care Code Est Pt Level 4 (54434) Diagnoses Fibromyalgia M79.7 Vertigo R42 CINTIA (generalized anxiety disorder) F41.1 Essential hypertension I10 Hypertension type: essential hypertension
[2023-06-01 11:47] VITALS: BP 150/90
== END 2023-06-01 11:51 | disposition home or self-care (01) ==
PROVIDERS: Visit Provider Physician Assistant
DX: M79.7 Fibromyalgia (principal); F41.1 Generalized anxiety disorder; R42 Dizziness and giddiness; K21.9 Gastro-esophageal reflux disease without esophagitis; I10 Essential (primary) hypertension
CPT/HCPCS: 99214

== ENCOUNTER 2023-10-12 14:24 | Outpatient (AMB) | payer MEDICARE, MEDICAID, SELFPAY ==
--- NOTE | 2023-10-12 14:26 | MHC.OFFVIS ---
Intake Vital Signs 10/12/23 14:27 Height 5 ft 2 in Weight 133 lb 10.986 oz BMI 24.4 BP 170/83 H Blood Pressure Location Lt brachial Position Sitting Pulse 107 H Intake Visit Reasons: 3 month follow up r/s from 07/06 Intake Note: Nolvia presents in the office as a 3 month follow up. CC: She states that she is feeling good and no concerns. [employer] Safe Required: No Allergies No Known Allergies Allergy (Verified 10/12/23 14:30) HPI 3 month follow up r/s from 07/06 HPI Details LAST VISIT: GERD (gastroesophageal reflux disease) Continue omeprazole every morning half an hour before breakfast. Patient was encouraged to avoid dietary triggers late night snacking. Staying upright for minimal 3 hours after meals discussed with patient. Nausea Patient reports nausea., discussed with patient avoiding dietary triggers. Epigastric abdominal pain Patient continues with occasional epigastric abdominal discomfort. Patient was encouraged to avoid dietary triggers. Avoid lactose and gluten. Will check lipase and amylase. I will see her in 3 months, sooner on as needed basis. Patient is agreeable to this plan and verbalizes understanding of instructions. She was given the opportunity to ask questions and all questions answered. ? Thank you for allowing me to participate in her care Plan Orders Orders Amylase 03/04/23 K21.9 - Gastro-esophageal reflux disease without esophagitis Lipase 03/04/23 R10.9 - Unspecified abdominal pain Medications Refilled omeprazole 20 mg PO DAILY 90 caps 1RF TODAY'S VISIT Patient is here today for follow-up and to discuss lab results. Patient continues to have increase amylase and lipase. Reports to have no abdominal pain or discomfort. Patient denies any nausea or vomiting. Her only complaint today is change in the way thing smell for her. Patient states that even some perfumes smell stronger than usual. History of COVID few times. The way the food smells she reports to be unusual and on pleasant. Patient reports occasional tinnitus, denies any sore throat, dyspepsia, dysphagia or odynophagia. Patient denies having any allergies or ever being tested. Patient has never seen ENT in the past. Patient reports that she is moving her bowels well without any issues. Denies melena, hematochezia, unintentional weight loss or ribbon like stools. [facility] Medical History (Updated 10/12/23 @ 15:10 by Roxanna Cifuentes [facility]) Parosmia Elevated lipase GERD (gastroesophageal reflux disease) Post-COVID syndrome BPV (benign positional vertigo) Vulvar leukoplakia HTN (hypertension) Surgical History Hx of esophagogastroduodenoscopy Hx of colonoscopy H/O tubal ligation Hx of cholecystectomy Family History Father HTN (hypertension) Depression Anxiety Mother Asthma Depression Anxiety CAD (coronary artery disease) Social History Housing: House Alcohol intake: never Patient Tobacco Use Status: Never used Tobacco e-Cigarette/Vaping Use: Never Used Second Hand Smoke Exposure: No service: No Current occupational status: unemployed Sexual orientation: Straight/Heterosexual Gender identity: Female Cognitive needs: No Hearing needs: No Vision needs: No Female Reproductive History Menstrual Age of Menarche: 11 Review of Systems Const Denies weight gain and Denies weight loss ENT Reports no additional complaints, Denies dysphagia and Denies odynophagia Card Reports no additional complaints Resp Reports no additional complaints and Reports other (Change in sense of smell) GI Denies abdominal pain, Denies belching, Denies melena, Denies bloating, Denies change in bowel habits, Denies dysphagia, Denies excessive flatus, Denies dyspepsia, Denies heartburn, Denies diarrhea, Denies loose stools, Denies nausea, Denies odynophagia and Denies vomiting Musc Reports no additional complaints Neuro Reports no additional complaints Psych Reports no additional complaints Endo Reports no additional complaints Aller/Immun Reports seasonal rhinorrhea Physical Exam Vital Signs: Last Vital Signs Pulse 107 H 10/12/23 14:27 BP 170/83 H 10/12/23 14:27 BMI result Body Mass Index 24.4 Const General: healthy appearing, no acute distress and well developed Nutritional Appearance: well nourished Orientation/consciousness: patient oriented x3 HEENT Head: Yes normal to inspection General nose exam: Abnormal mucous membranes and turbinates present (Redness) erythematous Throat: Yes tonsils normal, Yes uvula midline and Yes postnasal drainage Resp Effort & Inspection: normal respiratory effort, able to speak in complete sentences, no tracheal deviation and symmetric chest movement Auscultation: clear to auscultation bilaterally Cardio Rate: regular rate GI Inspection: Yes normal to inspection and No distended Palpation (GI): Soft to palpation, not firm, nontender and No hepatosplenomegaly present Auscultation: normal bowel sounds General: Yes no CVA tenderness Back/Spine/Pelvis Back: no CVA tenderness Skin General skin exam: elasticity normal, turgor normal and dry skin Neuro General: patient oriented x3 Psych Appearance: grossly normal Mental Status: mental status grossly normal Assessment & Plan Assessment & Plan (1) Parosmia: Code(s): R43.1 - Parosmia (2) GERD (gastroesophageal reflux disease): Code(s): K21.9 - Gastro-esophageal reflux disease without esophagitis Qualifiers: Esophagitis presence: without esophagitis Qualified Code(s): K21.9 - Gastro-esophageal reflux disease without esophagitis (3) Epigastric abdominal pain: Code(s): R10.13 - Epigastric pain Plan Will send patient for RAST allergen testing. On exam noted red nasal turbinates with postnasal drip. Will send script for Flonase. ENT referral. 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 Possible also due to allergies. Will reassess patient in 5 weeks. Patient will call the office if she will have any GI concerning symptoms. Patient is agreeable to this plan and verbalizes understanding of instructions. She was given the opportunity to ask questions and all questions answered. Thank you for allowing me to participate in her care Orders: Orders Rast Allergen 10/12/23 K21.9 - Gastro-esophageal reflux disease without esophagitis, R43.1 - Parosmia Referrals Ear/Nose/Throat Referral R43.1 - Parosmia Medications: New fluticasone propionate 50 mcg/actuation (Flonase Allergy Relief) administer into each nostril twice a day for 1 weeks and daily 1 spray intranasal BID 16 grams 0RF R05.9 - Cough, unspecified Coding Level of Care Code Est Pt Level 3 (95871) Diagnoses Parosmia R43.1 Gastroesophageal reflux disease without esophagitis K21.9 Esophagitis presence: without esophagitis Epigastric abdominal pain R10.13 Time Spent (min) 30 Comment 20 minutes spent with patient and additional 10 minutes spent reviewing her records
[2023-10-12 14:27] VITALS: BP 170/83; PULSE 107; BMI 24.4
== END 2023-10-12 15:16 | disposition home or self-care (01) ==
PROVIDERS: PCP Physician Assistant; Visit Provider Nurse Practitioner Family
DX: R43.1 Parosmia (principal); K21.9 Gastro-esophageal reflux disease without esophagitis; R10.13 Epigastric pain
CPT/HCPCS: 99213

== ENCOUNTER → 2023-10-12 14:24 | Outpatient (BNVA) | payer MEDICARE, MEDICAID, SELFPAY | PROVIDERS: PCP Physician Assistant; Visit Provider Nurse Practitioner Family | DX: K21.9 Gastro-esophageal reflux disease without esophagitis (principal); R43.1 Parosmia; R10.13 Epigastric pain | CPT/HCPCS: 99212 ==

== ENCOUNTER 2023-10-21 14:40 | Outpatient (REF) | payer MEDICARE, MEDICAID, SELFPAY | END 2023-10-21 14:41 | disposition home or self-care (01) | LOC: HO.LAB 14:40 | PROVIDERS: PCP Physician Assistant; Visit Provider Nurse Practitioner Family | DX: R43.1 Parosmia (principal); K21.9 Gastro-esophageal reflux disease without esophagitis; R10.13 Epigastric pain; K11.9 Disease of salivary gland, unspecified | CPT/HCPCS: 36415; 86003 ==

== ENCOUNTER 2023-11-30 10:37 | Outpatient (REF) | payer MEDICARE, MEDICAID, SELFPAY ==
--- NOTE | ~2023-11-30 | XR_ITS ---
EXAMINATION: XR SOFT TISSUE NECK CLINICAL INDICATION: Throat pain and generalized lymphadenopathy. COMPARISON: None available. TECHNIQUE: Frontal and lateral views of the soft tissue neck were obtained. FINDINGS: Soft tissue films of the neck demonstrate a normal larynx, pharynx and upper trachea. No soft tissue swelling or opaque foreign body is demonstrated. There is mild degenerative disc disease and endplate arthropathy at C4-C5 through C6-C7. XR/XR soft tissue neck IMPRESSION: Unremarkable examination of the soft tissues of the neck
[2023-11-30 12:28] LABS: Amylase 135 U/L (28-100); Lipase 65 U/L (8-78)
== END 2023-11-30 10:38 | disposition home or self-care (01) ==
LOC: HO.LAB 10:37
PROVIDERS: PCP Physician Assistant; Visit Provider Nurse Practitioner Family
DX: R10.13 Epigastric pain (principal); R10.9 Unspecified abdominal pain; K11.9 Disease of salivary gland, unspecified; K21.9 Gastro-esophageal reflux disease without esophagitis; R59.1 Generalized enlarged lymph nodes
CPT/HCPCS: 36415; 70360; 82150; 83690; 99212

== ENCOUNTER 2023-11-30 10:39 | Outpatient (AMB) | payer MEDICARE, MEDICAID, SELFPAY ==
[2023-11-30 10:42] VITALS: BP 158/72; PULSE 110; BMI 24.6
--- NOTE | 2023-11-30 10:42 | A.OFFVIS_ITS ---
Intake Vital Signs 11/30/23 10:42 Height 5 ft 2 in Weight 134 lb 7.712 oz BMI 24.6 BP 158/72 H Blood Pressure Location Lt brachial Position Sitting Pulse 110 H Intake Visit Reasons: 5 week follow up Intake Note: Patient here for 5 wk f/u parosmia. Using Flonase. RAST allergen: 10-21-23. Patient c/o: some smells are different. ENT referral refaxed to [facility]. Front Desk Team Member Required: No Accompanied by: Self / Same As Patient Allergies No Known Allergies Allergy (Verified 11/30/23 10:47) HPI 5 week follow up HPI Details LAST VISIT: Parosmia GERD (gastroesophageal reflux disease) Epigastric abdominal pain Plan Will send patient for RAST allergen testing. On exam noted red nasal turbinates with postnasal drip. Will send script for Flonase. ENT referral. 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 Possible also due to allergies. Will reassess patient in 5 weeks. Patient will call the office if she will have any GI concerning symptoms. Patient is agreeable to this plan and verbalizes understanding of instructions. She was given the opportunity to ask questions and all questions answered. ? Thank you for allowing me to participate in her care Orders Orders Rast Allergen 10/12/23 K21.9, R43.1 Referrals Ear/Nose/Throat Referral R43.1 Medications New fluticasone propionate 50 mcg/actuation (Flonase Allergy Relief) administer into each nostril twice a day for 1 weeks and daily 1 spray intranasal BID 16 grams 0RF R05.9 TODAY'S VISIT Patient is here today for follow-up. Patient never received phone call from ENT. Continues to have bad taste in her mouth. RAST allergen test done and patient has sensitivity to multiple different foods. Should probably follow-up with physiotherapy assistant. Patient reports postprandial epigastric pain and dyspepsia. Patient denies dysphagia or odynophagia. Patient had high amylase normal lipase few months back. Patient reports pain in submandibular region. Patient denies any other GI concerning symptoms. [facility] Medical History (Updated 11/30/23 @ 11:12 by Roxanna Cifuentes, [facility]) Parosmia GERD (gastroesophageal reflux disease) Post-COVID syndrome BPV (benign positional vertigo) Vulvar leukoplakia HTN (hypertension) Surgical History Hx of esophagogastroduodenoscopy Hx of colonoscopy H/O tubal ligation Hx of cholecystectomy Family History Father HTN (hypertension) Depression Anxiety Mother Asthma Depression Anxiety CAD (coronary artery disease) Social History Housing: House Alcohol intake: never Patient Tobacco Use Status: Never used Tobacco e-Cigarette/Vaping Use: Never Used Second Hand Smoke Exposure: No service: No Current occupational status: unemployed Sexual orientation: Straight/Heterosexual Gender identity: Female Cognitive needs: No Hearing needs: No Vision needs: No Female Reproductive History Menstrual Age of Menarche: 11 Review of Systems Const Denies weight gain and Denies weight loss ENT Reports no additional complaints, Denies dysphagia and Denies odynophagia Card Reports no additional complaints Resp Reports no additional complaints GI Denies abdominal pain, Denies belching, Denies melena, Denies bloating, Denies change in bowel habits, Denies dysphagia, Denies excessive flatus, Reports dyspepsia, Reports heartburn, Denies diarrhea, Denies loose stools, Denies nausea, Denies odynophagia, Denies vomiting and Reports other (Bad taste) Reports no additional complaints Musc Reports no additional complaints Neuro Reports no additional complaints Psych Reports no additional complaints Endo Reports no additional complaints Physical Exam Vital Signs: Last Vital Signs Pulse 110 H 11/30/23 10:42 BP 158/72 H 11/30/23 10:42 BMI result Body Mass Index 24.6 Const General: healthy appearing, no acute distress and well developed Nutritional Appearance: well nourished Orientation/consciousness: patient oriented x3 HEENT Teeth and gingiva: dentition normal and gingiva normal Throat: Yes posterior oropharynx normal and Yes uvula midline Neck Neck: Yes normal visual inspection, Yes full ROM and Yes lymphadenopathy Resp Effort & Inspection: normal respiratory effort, able to speak in complete sentences, no tracheal deviation and symmetric chest movement Auscultation: clear to auscultation bilaterally Cardio Rate: regular rate GI Inspection: Yes normal to inspection and No distended Palpation (GI): Soft to palpation, not firm, nontender and No hepatosplenomegaly present Auscultation: normal bowel sounds General: Yes no CVA tenderness Back/Spine/Pelvis Back: no CVA tenderness Skin General skin exam: elasticity normal, turgor normal and dry skin Neuro General: patient oriented x3 Psych Appearance: grossly normal Mental Status: mental status grossly normal Assessment & Plan Assessment & Plan (1) Parosmia: Code(s): R43.1 - Parosmia (2) GERD (gastroesophageal reflux disease): Code(s): K21.9 - Gastro-esophageal reflux disease without esophagitis Qualifiers: Esophagitis presence: without esophagitis Qualified Code(s): K21.9 - Gastro-esophageal reflux disease without esophagitis (3) Epigastric abdominal pain: Code(s): R10.13 - Epigastric pain (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 Patient will go for x-ray of her neck to rule out any abnormalities. Mild tenderness to submandibular lymph nodes noted. Patient will stop taking omeprazole and will start taking pantoprazole. Referral to ENT in [place] faxed by CHELSI. Patient will return in 3 months, sooner on as needed basis. Patient is agreeable to this plan and verbalizes understanding of instructions. She was given the opportunity to ask questions and all questions answered. Thank you for allowing me to participate in her care Orders: Orders Amylase Today K21.9 - Gastro-esophageal reflux disease without esophagitis Lipase Today R10.9 - Unspecified abdominal pain XR soft tissue neck Today K11.9 - Disease of salivary gland, unspecified, R59.1 - Generalized enlarged lymph nodes Medications: New pantoprazole take one tablet half an hour before breakfast 40 mg PO DAILY 30 tabs 3RF K21.9 - Gastro-esophageal reflux disease without esophagitis Discontinued omeprazole Discontinued Reason: Doctor's Order 20 mg PO DAILY 90 caps 1RF Coding Level of Care Code Est Pt Level 4 (65152) Diagnoses Parosmia R43.1 Gastroesophageal reflux disease without esophagitis K21.9 Esophagitis presence: without esophagitis Epigastric abdominal pain R10.13 Salivary gland disorder K11.9 Time Spent (min) 35 Comment 20 minutes spent with patient and additional 15 minutes spent reviewing her records
== END 2023-11-30 11:07 | disposition home or self-care (01) ==
PROVIDERS: PCP Physician Assistant; Visit Provider Nurse Practitioner Family
DX: R43.1 Parosmia (principal); K21.9 Gastro-esophageal reflux disease without esophagitis; R10.13 Epigastric pain; K11.9 Disease of salivary gland, unspecified
CPT/HCPCS: 99214

== ENCOUNTER 2024-01-02 10:23 | Outpatient (AMB) | payer MEDICARE, MEDICAID, SELFPAY ==
[2024-01-02 10:46] VITALS: BP 152/100; PULSE 101; O2SAT 100; BMI 24.4
--- NOTE | 2024-01-02 10:46 | A.OFFPC_ITS ---
Vital Signs 01/02/24 10:46 Height 5 ft 1.5 in Weight 131 lb 4 oz BMI 24.4 BP 152/100 H Blood Pressure Location Lt brachial Position Sitting Pulse 101 H Pulse Source Pulse Oximeter Pulse Oximetry (%) 100 Oxygen Delivery Method Room Air Intake Visit Reasons: Annual Exam Intake Note: Patient is here today for a physical. Electronic Installer Required: No Accompanied by: Self / Same As Patient Allergies No Known Allergies Allergy (Verified 01/02/24 11:08) Medication List - Last Reconciled 01/02/24 by Stephen Rothman PA-C buspirone 10 mg PO BID fluticasone propionate 50 mcg/actuation (Flonase Allergy Relief) 1 spray intranasal BID lorazepam mg PO meclizine 25 mg PO BID PRN 7 days pantoprazole 40 mg PO DAILY tizanidine 2 mg PO Q8H PRN 5 days venlafaxine ER 37.5 mg PO DAILY Tobacco use date assessed: 01/02/24 Dental Screening Dental Screen Date: 01/02/24 Did you have a dental visit in the last 12 months?: Yes Did you have a dental problem in the last 6 months where you did not have access to dental care?: No Was dental information given to patient?: Patient has dentist HPI Annual Exam HPI Details Pt is a 53 y/o F here today for a follow-up visit. Patient has a past medical history significant hypertension, GERD, post COVID anxiety. GERD : Followed by GI, continues on omeprazole 20 mg with good relief of her GERD symptoms. Also has a history of pancreatitis and has been having her amylase and lipase followed. Still continues to have a slightly elevated lipase amylase . concerns--> reports having intermittent episodes of dizziness associated with head movements and change in body position. Has not used any [id number] motion sickness medication. She does take meclizine with good effect. Offered her vestibular therapy referral though she declines at this time. Fibromyalgia--> She also reports having widespread bone pain without any recent evidence trauma. She does report having a family history of fibromyalgia. Has been taking tizanidine on a as needed basis with decent affect. . Anxiety:? She is now speaking with a mental health therapist whom she likes.? Recently started on effexor. She continues on BuSpar 10 mg b.i.d. with decent affect on reducing her anxiety.? Unfortunately at this time she has not been able to return back to work due to her severe anxiety. .. Hypertension:? Blood pressure slightly elevated today in office. She does not monitor blood pressure regularly at home. Was on blood pressure medication (metoprolol) in the past though had side effects to a lot of the blood pressure medications including lisinopril, metoprolol and amlodipine. I suspect she has an element of white coat hypertension and advised to regularly monitor blood pressure at home with goal blood pressure to be below 140/90. Mammo : Done in June 2023 - normal- BIRADS-1 .. 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 Colon cancer screening : Followed By GI, done 2019 at [facility] repeat 10 years .. Vaccine: UTD With Tdap,? UTD with COVID vaccine , [facility] Medical History Parosmia GERD (gastroesophageal reflux disease) Post-COVID syndrome BPV (benign positional vertigo) Vulvar leukoplakia HTN (hypertension) Surgical History Hx of esophagogastroduodenoscopy Hx of colonoscopy H/O tubal ligation Hx of cholecystectomy Family History Father HTN (hypertension) Depression Anxiety Mother Asthma Depression Anxiety CAD (coronary artery disease) Social History (Updated 01/02/24 @ 11:07 by Stephen Rothman PA-C) Housing: House Alcohol intake: never Patient Tobacco Use Status: Never used Tobacco e-Cigarette/Vaping Use: Never Used Second Hand Smoke Exposure: No service: No Current occupational status: unemployed and disabled Sexual orientation: Straight/Heterosexual Gender identity: Female Cognitive needs: No Hearing needs: No Vision needs: No Female Reproductive History Menstrual Age of Menarche: 11 Questionnaire PHQ-9 Over the last 2 weeks, how often have you been bothered by any of the following problems? 1. Little interest or pleasure in doing things: more than half the days 2. Feeling down, depressed, or hopeless: more than half the days 3. Trouble falling or staying asleep, or sleeping too much: more than half the days 4. Feeling tired or having little energy: several days 5. Poor appetite or overeating: several days 6. Feeling bad about yourself - or that you are a failure or have let yourself or your family down: several days 7. Trouble concentrating on things, such as reading the newspaper or watching television: more than half the days 8. Moving or speaking so slowly that other people could have noticed. Or the opposite - being so fidgety or restless that you have been moving around a lot more than usual: nearly every day 9. Thoughts that you would be better off or of hurting yourself in some way: several days Total score: 15 Depression Screening Interpretation: Positive Depression Screening Follow-up: Existing condition and In treatment (Pt is seeing a [facility]. therapist at [facility] a nd being treated.) Depression Screening Done: Yes 35690 - PHQ-9 Billing: Yes Source: Developed by Drs. Edin Dudley, Abi Millard, Sebastian Galvez and colleagues, with an educational radha from [employer]. Thrive Questionnaire Date Thrive assessed: 01/02/24 I am a: Patient What is your living situation today?: I have a steady place to live Within the past 12 months, did the food you bought not last and you didn't have the money to get more?: Never true Within the past 12 months, did you worry whether your food would run out before you got money to buy more?: Never true Do you have trouble paying for medicines?: No Do you have trouble getting transportation to medical appointments?: No Do you have trouble paying your heating and electricity bill?: No Do you have trouble taking care of your child, family member or friend?: No Do you have trouble with day-to-day activities such as bathing, preparing meals, shopping, managing finances, etc.?: No Are you currently unemployed and looking for a job?: No Are you interested in more education?: No Please select the resources that you would like help with: None Currently or been in a relationship where the following occur: no concerns reported THRIVE Score: 0 AUDIT C Alcohol Use Questionnaire (AUDIT-C) 1. How often do you have a drink containing alcohol?: Never 3. How often do you have six or more drinks on one occasion?: Never Total Score: 0 CINTIA-7 AMB Questionnaire CINITA-7 Date CINTIA - 7 assessed: 01/02/24 Feeling nervous, anxious, or on edge: 2 = More than half the days Not being able to stop or control worryin = Nearly every day Worrying too much about different things: 3 = Nearly every day Trouble relaxin = More than half the days Being so restless that it is hard to sit still: 2 = More than half the days Becoming easily annoyed or irritable: 3 = Nearly every day Feeling afraid as if something awful might happen: 2 = More than half the days Total CINTIA-7 score (0-4 normal; 5-9 mild; 10-14 moderate; 15-21 severe): 17 Source: Developed by Drs. Edin Dudley, Abi Millard, Sebastian Galvez and colleagues, with an educational radha from [employer]. CINTIA-7 Assessment Billing CINTIA-7 Assessment Tool: CINTIA-7 Assessment 39736 Review of Systems Const Denies body aches, Denies chills, Denies excessive sweating, Denies fatigue, Denies fever(s) and Denies headache(s) Eyes Denies blurry vision ENT Denies dysphagia, Denies vertigo, Denies dizziness, Denies headache(s), Denies hearing loss and Denies tinnitus Card Denies chest pain, Denies chest pain with activity, Denies syncope, Denies irregular heart rhythm and Denies dyspnea Resp Denies chest congestion, Denies cough, Denies hemoptysis, Denies dyspnea and Denies wheezing GI Denies abdominal pain, Denies melena, Denies hematochezia, Denies coffee ground emesis, Denies dysphagia, Denies diarrhea, Denies nausea and Denies vomiting Denies urinary frequency, Denies dysuria, Denies urinary hesitancy and Denies urinary urgency Musc Denies arthralgias, Denies limited range of motion, Denies muscle cramps and Denies muscle weakness Skin/Breast Denies rash and Denies skin ulcer Neuro Denies Abnormal speech present, Denies confusion, Denies vertigo, Denies dizziness, Denies syncope, Denies headache(s), Denies memory loss and Denies seizure-like activity Psych Denies anxiety, Denies confusion, Denies depression, Denies memory loss, Denies panic attacks and Denies paranoia Endo Denies excessive sweating, Denies fatigue, Denies flushing, Denies polydipsia and Denies polyuria Aller/Immun Denies wheezing Physical exam (Primary Care) Vital Signs: Last Vital Signs Pulse 101 H 01/02/24 10:46 BP 152/100 H 01/02/24 10:46 Pulse Ox 100 01/02/24 10:46 Oxygen Delivery Method Room Air 01/02/24 10:46 BMI result Body Mass Index 24.4 Tobacco/Smoking Status: Tobacco use Status Tobacco use date assessed 01/02/24 01/02/24 10:57 Patient Tobacco Use Status Never used Tobacco 01/02/24 11:07 e-Cigarette/Vaping Use Never Used 01/02/24 11:07 PHQ-9: PHQ-9 Score PHQ-9: Total score 15 01/02/24 11:03 Depression Screening Interpretation: Positive Depression Screening Follow-up: Existing condition and In treatment ([facility] therapist at [facility] a nd being treated.) Thrive Assessment: Date of Thrive Assessment Date Thrive assessed 01/02/24 01/02/24 10:57 Currently or been in a relationship where the following occur: no concerns reported Const General: cooperative, comfortable, no acute distress, alert and awake; No confusion Orientation/consciousness: oriented to person, oriented to place, patient oriented x3 and No confusion HENMT Head: Yes normocephalic Ears: external ears normal and TM's normal bilaterally Face and sinus: No sinus tenderness Mouth: Normal oral and palatal mucosa present and tongue normal Teeth and gingiva: dentition normal and gingiva normal Throat: Yes posterior oropharynx normal, Yes tonsils normal and Yes uvula midline Eyes Conjunctivae: conjunctivae normal Sclerae: sclerae normal Pupils: Equal, round and reactive pupils present EOM: EOMs intact bilaterally Direct Ophthalmoscopy: No no photophobia Neck Neck: Yes no lymphadenopathy, No tender and Yes no JVD Thyroid: Thyroid normal Carotids: no bruits Chest Chest palpation & inspection: no tenderness Resp Effort & Inspection: normal respiratory effort, no audible wheezes, not labored and no stridor Auscultation: no crackles, no rales, no rhonchi and no wheezes Cardio Jugular venous distension: no JVD Rate: regular rate, not bradycardic and not tachycardic Rhythm: regular rhythm Bruits: no carotid bruits Peripheral pulses: Peripheral pulses 2+ throughout GI Inspection: Yes normal to inspection, No abdominal wall ecchymosis and No visible herniation Palpation (GI): Soft to palpation, nontender, no guarding, not rigid and No hepatosplenomegaly present Auscultation: normoactive bowel sounds General: Yes no CVA tenderness Back/Spine/Pelvis Back: no CVA tenderness and No back tenderness Cervical Spine: cervical ROM normal Thoracic/Lumbar Spine: thoracic and lumbar spine normal to inspection, straight leg raise negative bilaterally, No thoraco-lumbar ROM limited and No lumbar spinal tenderness Skin Lesions: no lesions Rashes: no rashes Wounds: no wounds Neuro General: oriented to person, oriented to place, patient oriented x3, CN's II-XI intact bilaterally and No confusion Cranial nerves: Yes Equal, round and reactive pupils present and Yes Normal accommodation reflex present Cognition (Neuro): normal cognition Speech: No Abnormal speech present Gait exam (Neuro): Normal gait present Motor exam (neuro): 5/5 motor strength present throughout Extrem Right upper extremity: full ROM; no cyanosis Left upper extremity: full ROM; no cyanosis Right lower extremity: no edema Left lower extremity: no edema Psych Appearance: grossly normal Mental Status: mental status grossly normal Affect: normal affect Attitude: cooperative Thought process: Normal thought process present Assessment and Plan Assessment & Plan (1) Annual physical exam: Code(s): Z00.00 - Encounter for general adult medical examination without abnormal findings (2) Fibromyalgia: Code(s): M79.7 - Fibromyalgia Plan: Patient reports widespread pain in her shoulders, elbows, lower back. No trauma history. Likely has fibromyalgia. Will supply patient with low-dose tizanidine to use on a p.r.n. basis for her pain. (3) CINTIA (generalized anxiety disorder): Code(s): F41.1 - Generalized anxiety disorder Plan: Patient's CINTIA-7 score positive for anxiety which has been existing condition for her. She is now disabled due to her anxiety in his collecting SSI.. Patient continues to speak with a mental health therapist and continues on BuSpar which has been help for for her anxiety. Has also been started on new depression medication-- > effexor Still on disability and unable to work due to her anxiety. (4) HTN (hypertension): Code(s): I10 - Essential (primary) hypertension Qualifiers: Hypertension type: essential hypertension Qualified Code(s): I10 - Essential (primary) hypertension Plan: Patient has has a history of hypertension though has not been able to tolerate antihypertensive medication. She does not monitor blood pressure at home. Today's blood pressure slightly elevated in office. She believes is due to her nerves. Goal blood pressure to be below 140/90 (5) Bilateral hip pain: Code(s): M25.551 - Pain in right hip; M25.552 - Pain in left hip Plan: Patient reports bilateral thigh pain likely related to her fibromyalgia. She continues with the use of tizanidine on a p.r.n. basis with decent affect (6) Skin lesion of face: Code(s): L98.9 - Disorder of the skin and subcutaneous tissue, unspecified Plan: Has a keratotic lesion on her face that she would like a early childhood education specialist to evaluate and possibly removed. Orders: Orders Vitamin D 25-OH Total Today L98.9 - Disorder of the skin and subcutaneous tissue, unspecified Referrals Dermatology Referral L98.9 - Disorder of the skin and subcutaneous tissue, unspecified Medications: Refilled tizanidine 2 mg PO Q8H PRN 15 tabs 3RF muscle spasticity 5 days M79.7 - Fibromyalgia Patient Instructions: Goal: Blood pressure to remain below 140/90, monitor blood pressure at home Barriers: Adherence to physical activity and healthy eating habits Coding Level of Care Code Est Pt Prev Care 40-64y(56712) Diagnoses Annual physical exam Z00.00 Fibromyalgia M79.7 CINTIA (generalized anxiety disorder) F41.1 Essential hypertension I10 Hypertension type: essential hypertension Bilateral hip pain M25.551; M25.552 Skin lesion of face L98.9 Additional Codes CINTIA-7 Assessment Billing - CINTIA-7 Assessment Tool: CINTIA-7 Assessment 24952 ([id number])
== END 2024-01-02 11:23 | disposition home or self-care (01) ==
PROVIDERS: PCP Physician Assistant; Visit Provider Physician Assistant
DX: Z00.00 Encounter for general adult medical examination without abnormal findings (principal); M79.7 Fibromyalgia; F41.1 Generalized anxiety disorder; I10 Essential (primary) hypertension; M25.551 Pain in right hip; M25.552 Pain in left hip; L98.9 Disorder of the skin and subcutaneous tissue, unspecified
CPT/HCPCS: 99396

== ENCOUNTER 2024-01-06 06:55 | Outpatient (REF) | payer MEDICARE, MEDICAID, SELFPAY ==
[2024-01-06 07:44] LABS: Hematocrit 36.4 % (37.0-47.0); Hemoglobin 12.1 g/dl (12.0-16.0); Mean Corpuscular Hemoglobin 32.1 pg (27.0-33.0); Mean Corpuscular Volume 96.6 fL (80.0-98.0); Red Blood Count 3.77 X10*6/uL (4.20-5.50); White Blood Count 5.5 X10*3/uL (4.8-10.8)
[2024-01-06 07:45] LABS: Mean Corpuscular HGB Conc 33.2 g/dl (31.0-35.0); Mean Platelet Volume 11.3 fL (9.4-12.3); Platelet Count 198 X10*3/uL (160-400); Red Cell Distribution Width 12.2 % (11.0-16.0)
[2024-01-06 08:17] LABS: Alanine Aminotransferase 12 U/L (0-31); Alkaline Phosphatase 77 U/L (39-117); Anion Gap 11 (12-20); Aspartate Amino Transferase 21 U/L (5-31); Bilirubin Total 0.5 mg/dL (0.0-1.0); Blood Urea Nitrogen 16 mg/dL (9-16); Calcium 9.3 mg/dL (8.4-10.2); Carbon Dioxide 27 mmol/L (22-29); Chloride 107 mmol/L (96-108); Estimated Glomerular Filt Rate > 60; Glucose Fasting 92 mg/dL (60-99); Sodium 141 mmol/L (135-145); Total Protein 7.6 g/dL (6.5-8.0)
[2024-01-06 08:19] LABS: Creatinine Urine 120.97 mg/dL; Microalbum/Creatinine Ratio Ur 8.2 ug/mg cr (<30)
[2024-01-06 08:34] LABS: Vitamin D 25-OH Total 23.6 ng/mL (>30)
== END 2024-01-06 06:56 | disposition home or self-care (01) ==
LOC: HO.LAB 06:55
PROVIDERS: PCP Physician Assistant; Visit Provider Physician Assistant
DX: I10 Essential (primary) hypertension (principal); L98.9 Disorder of the skin and subcutaneous tissue, unspecified
CPT/HCPCS: 36415; 80053; 82043; 82306; 82570; 85027

== ENCOUNTER 2024-04-09 14:11 | Outpatient (AMB) | payer MEDICARE, MEDICAID, SELFPAY ==
[2024-04-09 14:12] VITALS: BP 140/80; PULSE 105; O2SAT 98; BMI 25.3
--- NOTE | 2024-04-09 14:12 | A.OFFPC_ITS ---
Vital Signs 04/09/24 14:12 Height 5 ft 1.5 in Weight 136 lb BMI 25.3 BP 140/80 H Blood Pressure Location Lt brachial Position Sitting Pulse 105 H Pulse Source Pulse Oximeter Pulse Oximetry (%) 98 Oxygen Delivery Method Room Air Intake Visit Reasons: 3 Month F/U Media Promoter Required: No Accompanied by: Self / Same As Patient Allergies No Known Allergies Allergy (Verified 04/09/24 14:20) Medication List - Last Reconciled 04/09/24 by Stephen Rothman PA-C buspirone 10 mg PO BID cholecalciferol (vitamin D3) 50 mcg PO DAILY 90 days fluticasone propionate 50 mcg/actuation (Flonase Allergy Relief) 1 spray intranasal BID lorazepam mg PO meclizine 25 mg PO BID PRN 7 days pantoprazole 40 mg PO DAILY venlafaxine ER 37.5 mg PO DAILY Tobacco use date assessed: 01/02/24 Dental Screening Dental Screen Date: 01/02/24 HPI 3 Month F/U HPI Details Pt is a 53 y/o F here today for a follow-up visit. Patient has a past medical history significant hypertension, GERD,. . concerns--> still suffers when pretty bad anxiety. Fibromyalgia--> She also reports having widespread bone pain without any recent evidence trauma. She does report having a family history of fibromyalgia. Has been taking tizanidine on a as needed basis with decent affect. . Anxiety:? Patient is followed by a psychiatrist and a mental health therapist..? Continues on Effexor and buspirone. ? Unfortunately at this time she has not been able to return back to work due to her severe anxiety. Has been started on lorazepam 0.5 mg p.r.n. for anxious symptoms which she reports has been helpful at times. .. Hypertension:? Blood pressure slightly elevated today in office. She does not monitor blood pressure regularly at home. Was on blood pressure medication (metoprolol) in the past though had side effects to a lot of the blood pressure medications including lisinopril, metoprolol and amlodipine. I suspect she has an element of white coat hypertension and advised to regularly monitor blood pressure at home with goal blood pressure to be below 140/90. [facility] Medical History Parosmia GERD (gastroesophageal reflux disease) Post-COVID syndrome BPV (benign positional vertigo) Vulvar leukoplakia HTN (hypertension) Surgical History Hx of esophagogastroduodenoscopy Hx of colonoscopy H/O tubal ligation Hx of cholecystectomy Family History Father HTN (hypertension) Depression Anxiety Mother Asthma Depression Anxiety CAD (coronary artery disease) Social History Housing: House Alcohol intake: never Patient Tobacco Use Status: Never used Tobacco e-Cigarette/Vaping Use: Never Used Second Hand Smoke Exposure: No service: No Current occupational status: unemployed and disabled Sexual orientation: Straight/Heterosexual Gender identity: Female Cognitive needs: No Hearing needs: No Vision needs: No Female Reproductive History Menstrual Age of Menarche: 11 Questionnaire Thrive Questionnaire Date Thrive assessed: 01/02/24 CINTIA-7 AMB Questionnaire CINTIA-7 Date CINTIA - 7 assessed: 01/02/24 Source: Developed by Drs. Edin Dudley, Abi Millard, Sebastian Galvez and colleagues, with an educational radha from [employer] Review of Systems Const Denies headache(s) Eyes Denies loss of vision ENT Reports vertigo, Denies dizziness, Denies headache(s) and Denies sore throat Card Denies chest pain, Denies leg edema and Denies lightheadedness Resp Denies cough, Denies hemoptysis and Denies wheezing GI Denies abdominal pain, Denies melena, Denies constipation, Denies diarrhea and Denies vomiting Denies urinary frequency, Denies dysuria and Denies urinary urgency Musc Denies arthralgias, Denies joint swelling, Denies numbness and Denies tingling Neuro Denies Abnormal speech present, Denies behavioral changes, Reports vertigo, Denies dizziness, Denies headache(s), Denies loss of vision, Denies memory loss, Denies numbness and Denies tingling Psych Denies anxiety, Denies behavioral changes, Denies depression, Denies memory loss and Denies panic attacks Torrey/Lymph Denies easy bleeding and Denies easy bruising Aller/Immun Denies wheezing Physical exam (Primary Care) Vital Signs: Last Vital Signs Pulse 105 H 04/09/24 14:12 BP 140/80 H 04/09/24 14:12 Pulse Ox 98 04/09/24 14:12 Oxygen Delivery Method Room Air 04/09/24 14:12 BMI result Body Mass Index 25.3 Tobacco/Smoking Status: Tobacco use Status Tobacco use date assessed 01/02/24 04/09/24 14:12 Patient Tobacco Use Status Never used Tobacco 04/09/24 14:12 e-Cigarette/Vaping Use Never Used 04/09/24 14:12 Thrive Assessment: Date of Thrive Assessment Date Thrive assessed 01/02/24 04/09/24 14:12 Const General: healthy appearing, no acute distress, alert and awake Nutritional Appearance: well nourished Orientation/consciousness: oriented to person, oriented to place and oriented to time HENMT Ears: TM's normal bilaterally General nose exam: Normal nasal mucous membranes and turbinates present Eyes Conjunctivae: conjunctivae normal Sclerae: sclerae normal Pupils: Equal, round and reactive pupils present Neck Neck: Yes no lymphadenopathy and Yes no JVD Thyroid: Thyroid normal Carotids: no bruits Resp Effort & Inspection: normal respiratory effort and not tachypneic Auscultation: no crackles, no rales, no rhonchi and no wheezes Cardio Rate: regular rate Rhythm: regular rhythm Heart sounds: no murmurs and normal S1 and S2 GI Palpation (GI): Soft to palpation, nontender, no hepatomegaly and no splenomegaly Auscultation: normal bowel sounds Skin General skin exam: no rashes or lesions noted and dry skin Neuro General: oriented to person, oriented to place and oriented to time Cranial nerves: Yes Equal, round and reactive pupils present Speech: No Abnormal speech present Gait exam (Neuro): Normal gait present Motor exam (neuro): no tremor noted Extrem Right upper extremity: full ROM Left upper extremity: full ROM Right lower extremity: full ROM; no edema Left lower extremity: full ROM; no edema Psych Mental Status: mental status grossly normal Speech and movement: Normal speech and movement present Affect: normal affect Attitude: cooperative Thought process: Normal thought process present Assessment and Plan Assessment & Plan (1) CINTIA (generalized anxiety disorder): Code(s): F41.1 - Generalized anxiety disorder Plan: Patient continues to speak with a mental health therapist and continues on BuSpar which has been help for for her anxiety. Has also been started on new depression medication-- > effexor Still on disability and unable to work due to her anxiety. She was recently started on lorazepam 0.5 mg p.r.n. for anxious symptoms which has been helpful. (2) Fibromyalgia: Code(s): M79.7 - Fibromyalgia Plan: Patient reports widespread pain in her shoulders, elbows, lower back. No trauma history. Likely has fibromyalgia. She reports tizanidine does help her pain though would like a higher dose. Will increase her dose of tizanidine to 4 mg to use as needed. (3) HTN (hypertension): Code(s): I10 - Essential (primary) hypertension Qualifiers: Hypertension type: essential hypertension Qualified Code(s): I10 - Essential (primary) hypertension Plan: Patient has has a history of hypertension though has not been able to tolerate antihypertensive medication. She does not monitor blood pressure at home. Today's blood pressure slightly slightly elevated in office at 01:40 systolic.. She believes is due to her nerves/anxiety. Goal blood pressure to be below 140/90 (4) Vertigo: Code(s): R42 - Dizziness and giddiness Plan: We did discuss her vertigo with changes in her head movements. She would likely benefit from formal vestibular therapy though she declines as she has a lot of anxiety going out of her house. Did give her a name of Saurabh maneuvers to do at home. Orders: Orders Microalbumin, Random (w Creat) Today I10 - Essential (primary) hypertension Complete Blood Count no Diff Today K21.9 - Gastro-esophageal reflux disease without esophagitis Comprehensive [place]. Panel Fast Today I10 - Essential (primary) hypertension Medications: New tizanidine 4 mg PO BID 15 days PRN 30 tabs 2RF muscle spasticity M79.7 - Fibromyalgia loratadine 10 mg PO DAILY 90 tabs 1RF T78.40XA - Allergy, unspecified, initial encounter Changed From meclizine 25 mg PO BID 7 days PRN 14 tabs 1RF dizziness R42 - Dizziness and giddiness To meclizine 25 mg PO BID 15 days PRN 30 tabs 2RF dizziness R42 - Dizziness and giddiness Refilled cholecalciferol (vitamin D3) 50 mcg PO DAILY 90 days 90 caps 1RF E55.9 - Vitamin D deficiency, unspecified Patient Instructions: Goal: Blood pressure to remain below 140/90 Barriers: Adherence to physical activity and healthy eating habits Coding Level of Care Code Est Pt Level 4 (63362) Diagnoses CINTIA (generalized anxiety disorder) F41.1 Fibromyalgia M79.7 Essential hypertension I10 Hypertension type: essential hypertension Vertigo R42
== END 2024-04-09 14:40 | disposition home or self-care (01) ==
PROVIDERS: PCP Physician Assistant; Visit Provider Physician Assistant
DX: F41.1 Generalized anxiety disorder (principal); M79.7 Fibromyalgia; I10 Essential (primary) hypertension; R42 Dizziness and giddiness
CPT/HCPCS: 99214

== ENCOUNTER 2024-06-04 10:46 | Outpatient (AMB) | payer MEDICARE, MEDICAID, SELFPAY ==
--- NOTE | 2024-06-04 10:48 | MHC.OFFVIS ---
Vital Signs 06/04/24 10:52 Height 5 ft 2 in Weight 137 lb 9.095 oz BMI 25.2 BP 144/82 H Blood Pressure Location Lt brachial Position Sitting Pulse 104 H Pulse Source Pulse Oximeter Pulse Oximetry (%) 98 Oxygen Delivery Method Room Air Intake Visit Reasons: 3 month follow up Intake Note: Relevant Flags or Indicators ? Requires Safety Fire Boss? Adri De Souza presents in office today for a scheduled 6 mos FUV. CC; Since last visit; labs ordered ? done. Rx ordered ? no. Diagnostics/images ordered ? neck xray. Relevant GI Sx as reported per pt? None ? Hx of any recent surgeries? None Safety Fire Boss Required: Yes Safety Fire Boss Services: Safety Fire Boss Offered & Declined Allergies No Known Allergies Allergy (Verified 06/04/24 10:49) HPI HPI 3 month follow up: Details: LAST VISIT: Parosmia GERD (gastroesophageal reflux disease) Epigastric abdominal pain Salivary gland disorder Plan Will repeat amylase and lipase today. Patient will go for x-ray of her neck to rule out any abnormalities. Mild tenderness to submandibular lymph nodes noted. Patient will stop taking omeprazole and will start taking pantoprazole. Referral to ENT in [place] faxed by CHELSI. Patient will return in 3 months, sooner on as needed basis. Patient is agreeable to this plan and verbalizes understanding of instructions. She was given the opportunity to ask questions and all questions answered. ? Thank you for allowing me to participate in her care Orders Orders Amylase Today K21.9 Lipase Today R10.9 XR soft tissue neck Today K11.9, R59.1 Medications New pantoprazole take one tablet half an hour before breakfast 40 mg PO DAILY 30 tabs 3RF K21.9 Discontinued omeprazole Discontinued Reason: Doctor's Order 20 mg PO DAILY 90 caps 1RF TODAY'S VISIT: Patient is here today for follow-up and to discuss lab and x-ray results. Patient reports to be feeling well. States that pantoprazole is working, however not as good as omeprazole did. Patient had normal x-ray normal labs except mildly elevated amylase. Patient denies any abdominal pain or discomfort. Patient reports that she is moving her bowels well without any issues. Denies any dyspepsia, dysphagia or odynophagia. Denies melena, hematochezia, unintentional weight loss or ribbon like stools. PFS Medical History Parosmia GERD (gastroesophageal reflux disease) Post-COVID syndrome BPV (benign positional vertigo) Vulvar leukoplakia HTN (hypertension) Surgical History Hx of esophagogastroduodenoscopy Hx of colonoscopy H/O tubal ligation Hx of cholecystectomy Family History Father HTN (hypertension) Depression Anxiety Mother Asthma Depression Anxiety CAD (coronary artery disease) Social History Housing: House Alcohol intake: never Patient Tobacco Use Status: Never used Tobacco e-Cigarette/Vaping Use: Never Used Second Hand Smoke Exposure: No service: No Current occupational status: unemployed and disabled Sexual orientation: Straight/Heterosexual Gender identity: Female Cognitive needs: No Hearing needs: No Vision needs: No Female Reproductive History Menstrual Age of Menarche: 11 Review of Systems Const Denies weight gain and Denies weight loss ENT Reports no additional complaints, Denies dysphagia and Denies odynophagia Card Reports no additional complaints Resp Reports no additional complaints GI Denies abdominal pain, Denies belching, Denies melena, Denies bloating, Denies change in bowel habits, Denies dysphagia, Denies excessive flatus, Denies dyspepsia, Reports heartburn (Occasional), Denies diarrhea, Denies loose stools, Denies nausea, Denies odynophagia and Denies vomiting Reports no additional complaints Musc Reports no additional complaints Neuro Reports no additional complaints Psych Reports no additional complaints Endo Reports no additional complaints Physical Exam Vital Signs: Last Vital Signs Pulse 104 H 06/04/24 10:52 BP 144/82 H 06/04/24 10:52 Pulse Ox 98 06/04/24 10:52 Oxygen Delivery Method Room Air 06/04/24 10:52 BMI result Body Mass Index 25.2 Const General: healthy appearing, no acute distress and well developed Nutritional Appearance: well nourished Orientation/consciousness: patient oriented x3 Resp Effort & Inspection: normal respiratory effort, able to speak in complete sentences, no tracheal deviation and symmetric chest movement Auscultation: clear to auscultation bilaterally Cardio Rate: regular rate GI Inspection: Yes normal to inspection and No distended Palpation (GI): Soft to palpation, not firm, nontender and No hepatosplenomegaly present Auscultation: normal bowel sounds General: Yes no CVA tenderness Back/Spine/Pelvis Back: no CVA tenderness Skin General skin exam: elasticity normal, turgor normal and dry skin Neuro General: patient oriented x3 Psych Appearance: grossly normal Mental Status: mental status grossly normal Results Reviewed Results Reviewed: X-RAY SOFT TISSUE NECK FINDINGS: Soft tissue films of the neck demonstrate a normal larynx, pharynx and upper trachea. No soft tissue swelling or opaque foreign body is demonstrated. There is mild degenerative disc disease and endplate arthropathy at C4-C5 through C6-C7. XR/XR soft tissue neck IMPRESSION: Unremarkable examination of the soft tissues of the neck Assessment & Plan Assessment & Plan (1) Parosmia: Code(s): R43.1 - Parosmia Category: Medical (2) GERD (gastroesophageal reflux disease): Code(s): K21.9 - Gastro-esophageal reflux disease without esophagitis Category: Medical Qualifiers: Esophagitis presence: without esophagitis Qualified Code(s): K21.9 - Gastro-esophageal reflux disease without esophagitis (3) Epigastric abdominal pain: Code(s): R10.13 - Epigastric pain Category: Medical (4) Salivary gland disorder: Code(s): K11.9 - Disease of salivary gland, unspecified Plan Will change PPI back to omeprazole. Avoid dietary triggers and late night snacking. Staying upright for minimum 3 hours after meals discussed with patient. No acute findings seen on x-ray. Patient will be due to go for colonoscopy next year. Patient had colonoscopy when she was 48 years old and it was normal. We might send her for upper endoscopy at the same time. Patient is agreeable to plan of care and verbalizes understanding of instructions. She was given the opportunity to ask questions and all questions answered. Thank you for allowing me to participate in her care Medications: New omeprazole 40 mg PO DAILY 90 caps 3RF K21.9 - Gastro-esophageal reflux disease without esophagitis Discontinued pantoprazole take one tablet half an hour before breakfast Discontinued Reason: Doctor's Order 40 mg PO DAILY 30 tabs 3RF K21.9 - Gastro-esophageal reflux disease without esophagitis Coding Level of Care Code Est Pt Level 4 (89860) Diagnoses Parosmia R43.1 Gastroesophageal reflux disease without esophagitis K21.9 Esophagitis presence: without esophagitis Epigastric abdominal pain R10.13 Salivary gland disorder K11.9 Time Spent (min) 35 Comment 20 minutes spent with patient and additional 15 minutes spent reviewing her records
[2024-06-04 10:52] VITALS: BP 144/82; PULSE 104; O2SAT 98; BMI 25.2
== END 2024-06-04 11:11 | disposition home or self-care (01) ==
PROVIDERS: PCP Physician Assistant; Visit Provider Nurse Practitioner Family
DX: R43.1 Parosmia (principal); K21.9 Gastro-esophageal reflux disease without esophagitis; R10.13 Epigastric pain; K11.9 Disease of salivary gland, unspecified
CPT/HCPCS: 99214

== ENCOUNTER → 2024-06-04 10:46 | Outpatient (BNVA) | payer MEDICARE, MEDICAID, SELFPAY | PROVIDERS: PCP Physician Assistant; Visit Provider Nurse Practitioner Family | DX: K21.9 Gastro-esophageal reflux disease without esophagitis (principal); K11.9 Disease of salivary gland, unspecified; R43.1 Parosmia; R10.13 Epigastric pain | CPT/HCPCS: 99212 ==

== ENCOUNTER → 2024-07-03 08:45 | Outpatient (BNV) | payer MEDICARE, MEDICAID, SELFPAY | PROVIDERS: PCP Physician Assistant; Visit Provider Internal Medicine | DX: Z12.31 Encounter for screening mammogram for malignant neoplasm of breast (principal) | CPT/HCPCS: 77063; 77067 ==

== ENCOUNTER 2024-07-03 08:59 | Outpatient (REF) | payer MEDICARE, MEDICAID, SELFPAY ==
--- NOTE | ~2024-07-03 | MM_ITS ---
EXAMINATION: MM SCREENING DIGITAL BREAST TOMOSYNTHESIS, BILATERAL CLINICAL INFORMATION: Screening. Asymptomatic. COMPARISON: Mammography: Comparison is made with available priors TECHNIQUE: Digital breast mammography with tomosynthesis is performed in both the craniocaudal and mediolateral oblique views along with computer-aided detection (CAD). FINDINGS: There are scattered areas of fibroglandular density (ACR BI-RADS breast composition Category b). There are no significant masses, abnormal calcifications, or other abnormalities. MM/MM tomosynthesis screening BI IMPRESSION: No mammographic evidence of malignancy. ASSESSMENT: BI-RADS BI-RADS 1 - Negative RECOMMENDATION: Routine annual mammography screening. 1 year F/U This examination should not preclude the clinical evaluation of a suspicious palpable abnormality. This patient's information was entered into a reminder system with a target due date for their next mammogram. Electronically signed by: Patricia Workman DO 07/11/2024 08:17 AM [facility]
== END 2024-07-03 09:00 | disposition home or self-care (01) ==
LOC: HO.MAMMO 08:59
PROVIDERS: PCP Physician Assistant; Visit Provider Physician Assistant
DX: Z12.31 Encounter for screening mammogram for malignant neoplasm of breast (principal)
CPT/HCPCS: 77063; 77067

== ENCOUNTER 2024-07-31 07:29 | Outpatient (REF) | payer MEDICARE, MEDICAID, SELFPAY ==
[2024-07-31 08:35] LABS: Hematocrit 37.1 % (37.0-47.0); Hemoglobin 12.2 g/dl (12.0-16.0); Mean Corpuscular HGB Conc 32.9 g/dl (31.0-35.0); Mean Corpuscular Hemoglobin 31.7 pg (27.0-33.0); Mean Corpuscular Volume 96.4 fL (80.0-98.0); Mean Platelet Volume 10.9 fL (9.4-12.3); Platelet Count 222 X10*3/uL (160-400); Red Blood Count 3.85 X10*6/uL (4.20-5.50); Red Cell Distribution Width 12.5 % (11.0-16.0); White Blood Count 5.5 X10*3/uL (4.8-10.8)
[2024-07-31 09:05] LABS: Alanine Aminotransferase 17 U/L (0-31); Albumin Level 3.8 g/dL (3.5-5.0); Alkaline Phosphatase 80 U/L (39-117); Anion Gap 10 (12-20); Aspartate Amino Transferase 27 U/L (5-31); Bilirubin Total 0.4 mg/dL (0.0-1.0); Blood Urea Nitrogen 16 mg/dL (9-16); Calcium 8.4 mg/dL (8.4-10.2); Carbon Dioxide 26 mmol/L (22-29); Chloride 108 mmol/L (96-108); Estimated Glomerular Filt Rate > 60; Glucose Fasting 90 mg/dL (60-99); Potassium 3.9 mmol/L (3.3-5.1); Sodium 140 mmol/L (135-145); Total Protein 7.5 g/dL (6.5-8.0)
[2024-07-31 09:26] LABS: Creatinine Urine 139.05 mg/dL; Microalbum/Creatinine Ratio Ur 9.3 ug/mg cr (<30)
== END 2024-07-31 07:30 | disposition home or self-care (01) ==
LOC: HO.LAB 07:29
PROVIDERS: PCP Physician Assistant; Visit Provider Physician Assistant
DX: K21.9 Gastro-esophageal reflux disease without esophagitis (principal); I10 Essential (primary) hypertension
CPT/HCPCS: 36415; 80053; 82043; 82570; 85027

== ENCOUNTER 2024-08-02 08:45 | Outpatient (AMB) | payer MEDICARE, MEDICAID, SELFPAY ==
[2024-08-02 08:48] VITALS: BP 118/76; PULSE 74; O2SAT 98; BMI 25.2
--- NOTE | 2024-08-02 08:48 | A.OFFPC_ITS ---
Vital Signs 08/02/24 08:48 Height 5 ft 2 in Weight 138 lb BMI 25.2 BP 118/76 Blood Pressure Location Lt brachial Position Sitting Pulse 74 Pulse Source Pulse Oximeter Pulse Oximetry (%) 98 Oxygen Delivery Method Room Air Intake Visit Reasons: 4 Month F/U Real Estate Asset Manager Required: No Accompanied by: Self / Same As Patient Allergies No Known Allergies Allergy (Verified 08/02/24 08:55) Medication List - Last Reconciled 08/02/24 by Stephen Rothman PA-C buspirone 10 mg PO BID cholecalciferol (vitamin D3) 50 mcg PO DAILY 90 days fluticasone propionate 50 mcg/actuation (Flonase Allergy Relief) 1 spray intranasal BID ketoconazole 2% topical loratadine 10 mg PO DAILY lorazepam mg PO meclizine 25 mg PO BID PRN 15 days omeprazole 40 mg PO DAILY tizanidine 4 mg PO BID PRN 15 days venlafaxine ER 37.5 mg PO DAILY Tobacco use date assessed: 08/02/24 Dental Screening Dental Screen Date: 08/02/24 Did you have a dental visit in the last 12 months?: No Did you have a dental problem in the last 6 months where you did not have access to dental care?: No Was dental information given to patient?: Patient has dentist HPI 4 Month F/U HPI Details Pt is a 54 y/o F here today for a follow-up visit. Patient has a past medical history significant hypertension, GERD,. . Recently seen Dermatology for facial skin lesion in biopsies taken. She reports she has a skin cancer that will be removed in early September of 2024 Fibromyalgia--> she reports her pain has still been evident though tizanidine has been effective for reducing her pain. . Anxiety:? Patient is followed by a psychiatrist and a mental health therapist..? Continues on Effexor and buspirone. ? Has been started on lorazepam 0.5 mg p.r.n. for anxious symptoms which she reports has been helpful at times. .. Hypertension:? Blood pressure acceptable today in office. She does not monitor blood pressure regularly at home. Was on blood pressure medication (metoprolol) in the past though had side effects to a lot of the blood pressure medications including lisinopril, metoprolol and amlodipine. [facility] Medical History (Updated 08/02/24 @ 09:12 by Stephen Rothman PA-C) Post-COVID chronic anxiety GERD (gastroesophageal reflux disease) Post-COVID syndrome BPV (benign positional vertigo) Vulvar leukoplakia HTN (hypertension) Surgical History Hx of esophagogastroduodenoscopy Hx of colonoscopy H/O tubal ligation Hx of cholecystectomy Family History Father HTN (hypertension) Depression Anxiety Mother Asthma Depression Anxiety CAD (coronary artery disease) Social History Housing: House Alcohol intake: never Patient Tobacco Use Status: Never used Tobacco e-Cigarette/Vaping Use: Never Used Second Hand Smoke Exposure: No service: No Current occupational status: unemployed and disabled Sexual orientation: Straight/Heterosexual Gender identity: Female Cognitive needs: No Hearing needs: No Vision needs: No Female Reproductive History Menstrual Age of Menarche: 11 Questionnaire PHQ-9 Over the last 2 weeks, how often have you been bothered by any of the following problems? 1. Little interest or pleasure in doing things: more than half the days 2. Feeling down, depressed, or hopeless: more than half the days 3. Trouble falling or staying asleep, or sleeping too much: more than half the days 4. Feeling tired or having little energy: several days 5. Poor appetite or overeating: several days 6. Feeling bad about yourself - or that you are a failure or have let yourself or your family down: several days 7. Trouble concentrating on things, such as reading the newspaper or watching television: more than half the days 8. Moving or speaking so slowly that other people could have noticed. Or the opposite - being so fidgety or restless that you have been moving around a lot more than usual: nearly every day 9. Thoughts that you would be better off or of hurting yourself in some way: several days Total score: 15 Depression Screening Interpretation: Positive Depression Screening Follow-up: Existing condition and In treatment ([facility] at [facility] a nd being treated.) Depression Screening Done: Yes 97340 - PHQ-9 Billing: Yes Source: Developed by Drs. Edin Dudley, Sebastian Valentine and colleagues, with an educational radha from [employer]. Thrive Questionnaire Date Thrive assessed: 08/02/24 I am a: Patient What is your living situation today?: I have a steady place to live Within the past 12 months, did the food you bought not last and you didn't have the money to get more?: Never true Within the past 12 months, did you worry whether your food would run out before you got money to buy more?: Never true Do you have trouble paying for medicines?: No Do you have trouble getting transportation to medical appointments?: No Do you have trouble paying your heating and electricity bill?: No Do you have trouble taking care of your child, family member or friend?: No Do you have trouble with day-to-day activities such as bathing, preparing meals, shopping, managing finances, etc.?: No Are you currently unemployed and looking for a job?: No Are you interested in more education?: No Please select the resources that you would like help with: None Currently or been in a relationship where the following occur: No concerns reported THRIVE Score: 0 AUDIT C Alcohol Use Questionnaire (AUDIT-C) 1. How often do you have a drink containing alcohol?: Never 3. How often do you have six or more drinks on one occasion?: Never Total Score: 0 CINTAI-7 AMB Questionnaire CINTIA-7 Date CINTIA - 7 assessed: 08/02/24 Feeling nervous, anxious, or on edge: 0 = Not at all Not being able to stop or control worryin = Not at all Worrying too much about different things: 0 = Not at all Trouble relaxin = Not at all Being so restless that it is hard to sit still: 0 = Not at all Becoming easily annoyed or irritable: 0 = Not at all Feeling afraid as if something awful might happen: 0 = Not at all Total CINTIA-7 score (0-4 normal; 5-9 mild; 10-14 moderate; 15-21 severe): 0 Source: Developed by Drs. Edin Dudley, Sebastian Valentine and colleagues, with an educational radha from [employer]. CINTIA-7 Assessment Billing CINTIA-7 Assessment Tool: CINTIA-7 Assessment 81713 Review of Systems Const Denies headache(s) Eyes Denies loss of vision ENT Denies vertigo, Denies dizziness, Denies headache(s) and Denies sore throat Card Denies chest pain, Denies leg edema and Denies lightheadedness Resp Denies cough, Denies hemoptysis and Denies wheezing GI Denies abdominal pain, Denies melena, Denies constipation, Denies diarrhea and Denies vomiting Denies urinary frequency, Denies dysuria and Denies urinary urgency Musc Denies arthralgias, Denies joint swelling, Denies numbness and Denies tingling Neuro Denies Abnormal speech present, Denies behavioral changes, Denies vertigo, Denies dizziness, Denies headache(s), Denies loss of vision, Denies memory loss, Denies numbness and Denies tingling Psych Denies anxiety, Denies behavioral changes, Denies depression, Denies memory loss and Denies panic attacks Torrey/Lymph Denies easy bleeding and Denies easy bruising Aller/Immun Denies wheezing Physical exam (Primary Care) Vital Signs: Last Vital Signs Pulse 74 08/02/24 08:48 BP 118/76 08/02/24 08:48 Pulse Ox 98 08/02/24 08:48 Oxygen Delivery Method Room Air 08/02/24 08:48 BMI result Body Mass Index 25.2 Tobacco/Smoking Status: Tobacco use Status Tobacco use date assessed 08/02/24 08/02/24 08:53 Patient Tobacco Use Status Never used Tobacco 08/02/24 08:53 e-Cigarette/Vaping Use Never Used 08/02/24 08:53 PHQ-9: PHQ-9 Score PHQ-9: Total score 15 08/02/24 08:53 Depression Screening Interpretation: Positive Depression Screening Follow-up: Existing condition and In treatment ([facility] at [facility] a nd being treated.) Thrive Assessment: Date of Thrive Assessment Date Thrive assessed 08/02/24 08/02/24 08:53 Currently or been in a relationship where the following occur: No concerns reported Const General: healthy appearing, no acute distress, alert and awake Nutritional Appearance: well nourished Orientation/consciousness: oriented to person, oriented to place and oriented to time HENMT Ears: TM's normal bilaterally General nose exam: Normal nasal mucous membranes and turbinates present Eyes Conjunctivae: conjunctivae normal Sclerae: sclerae normal Pupils: Equal, round and reactive pupils present Neck Neck: Yes no lymphadenopathy and Yes no JVD Thyroid: Thyroid normal Carotids: no bruits Resp Effort & Inspection: normal respiratory effort and not tachypneic Auscultation: no crackles, no rales, no rhonchi and no wheezes Cardio Rate: regular rate Rhythm: regular rhythm Heart sounds: no murmurs and normal S1 and S2 GI Palpation (GI): Soft to palpation, nontender, no hepatomegaly and no splenomegaly Auscultation: normal bowel sounds Skin General skin exam: no rashes or lesions noted and dry skin Neuro General: oriented to person, oriented to place and oriented to time Cranial nerves: Yes Equal, round and reactive pupils present Speech: No Abnormal speech present Gait exam (Neuro): Normal gait present Motor exam (neuro): no tremor noted Extrem Right upper extremity: full ROM Left upper extremity: full ROM Right lower extremity: full ROM; no edema Left lower extremity: full ROM; no edema Psych Mental Status: mental status grossly normal Speech and movement: Normal speech and movement present Affect: normal affect Attitude: cooperative Thought process: Normal thought process present Coding Level of Care Code Est Pt Level 4 (74441) Diagnoses Essential hypertension I10 Hypertension type: essential hypertension Fibromyalgia M79.7 CINTIA (generalized anxiety disorder) F41.1 Additional Codes PHQ-9 - 45236 - PHQ-9 Billing: Yes ([id number]) CINTIA-7 Assessment Billing - CINTIA-7 Assessment Tool: CINTIA-7 Assessment 36014 ([id number]) Assessment & Plan Assessment & Plan (1) HTN (hypertension): Code(s): I10 - Essential (primary) hypertension Category: Medical Qualifiers: Hypertension type: essential hypertension Qualified Code(s): I10 - Essential (primary) hypertension Plan: Patient's blood pressure acceptable today in office. She is able to manage her blood pressure without medication at this point. Goal blood pressures to remain below 140/90 (2) Fibromyalgia: Code(s): M79.7 - Fibromyalgia Category: Medical Plan: As per HPI patient reports she has gets good relief of her pain with p.r.n. use of tizanidine. She is speaking with a mental health therapies every 2 weeks. (3) CINTIA (generalized anxiety disorder): Code(s): F41.1 - Generalized anxiety disorder Category: Medical Plan: Patient does speak with a mental health therapist every 2 weeks continues on venlafaxine and BuSpar with good effect. Only using limited amounts of lorazepam Orders: Orders Microalbumin, Random (w Creat) Today I10 - Essential (primary) hypertension Comprehensive [place]. Panel Fast Today I10 - Essential (primary) hypertension Complete Blood Count no Diff Today I10 - Essential (primary) hypertension
== END 2024-08-02 09:04 | disposition home or self-care (01) ==
PROVIDERS: PCP Physician Assistant; Visit Provider Physician Assistant
DX: I10 Essential (primary) hypertension (principal); M79.7 Fibromyalgia; F41.1 Generalized anxiety disorder

== ENCOUNTER → 2024-08-02 08:45 | Outpatient (BNVA) | payer MEDICARE, MEDICAID, SELFPAY | PROVIDERS: PCP Physician Assistant; Visit Provider Physician Assistant | DX: I10 Essential (primary) hypertension (principal); K21.9 Gastro-esophageal reflux disease without esophagitis; M79.7 Fibromyalgia; F41.9 Anxiety disorder, unspecified; F41.1 Generalized anxiety disorder | CPT/HCPCS: 96127; 99212 ==

== ENCOUNTER 2025-01-02 10:55 | Outpatient (AMB) | payer MEDICARE, MEDICAID, SELFPAY ==
--- NOTE | 2025-01-02 10:59 | A.OFFVIS_ITS ---
Intake Vital Signs 01/02/25 11:00 Height 5 ft 2 in Weight 128 lb BMI 23.4 BP 142/94 H Blood Pressure Location Lt brachial Position Sitting Pulse 116 H Pulse Source Pulse Oximeter Temp 97.1 F Temp Source Temporal Artery Scan Pulse Oximetry (%) 100 Oxygen Delivery Method Room Air Intake Visit Reasons: AWV Pet Supplies Salesperson Required: Yes Pet Supplies Salesperson Language: Community Engagement Specialist Name: ID [id number] Accompanied by: Self / Same As Patient Allergies No Known Allergies Allergy (Verified 08/02/24 08:55) Medication List - Last Reconciled 01/02/25 by Stephen Rothman PA-C buspirone 10 mg PO BID cholecalciferol (vitamin D3) 50 mcg PO DAILY 90 days fluticasone propionate 50 mcg/actuation (Flonase Allergy Relief) 1 spray intra nasal BID ketoconazole 2% topical loratadine 10 mg PO DAILY lorazepam mg PO meclizine 25 mg PO BID PRN 15 days omeprazole 40 mg PO DAILY tizanidine 4 mg PO BID PRN 15 days venlafaxine ER 37.5 mg PO DAILY HPI AWV HPI Details Patient is a 54-year-old female here today for an annual wellness visit. Today we discussed patient's end of life planning and was given a MOLST form today in office. Today we discussed patient's comprehensive care plan and was scanned in patient's documents. Mammo : Done in June 2023 - normal- BIRADS-1 .. 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 Colon cancer screening : Followed By GI, done 2019 at [facility] repeat 10 years .. Vaccine: UTD With Tdap,? UTD with COVID vaccine , declines flu vaccine HPI Comments History of Present Illness Details reviewed past medical history- yes reviewed surgical / hospitalization history- yes reviewed current medications- yes reviewed family history- yes home safety throw rugs? grab bars? raised toilet seat? working smoke detectors? activities of daily living difficulty bathing or showering? difficulty dressing? difficulty using the toilet? difficulty getting in and out of bed? difficulty walking? receives help from other person's with any of the above tasks? instrumental activities of daily living uses telephone - gets to place out of walking distance- go shopping for groceries- repairs own meals- does own minor home maintenance- does own laundry- does own housework- manages own money- currently takes medication- end of life planning discussed advanced directives- yes advanced directives on file? discussed wishes expressed in advanced directives. fall risk have you had any falls with injuries in the past year? have you had 2 or more falls in the past year? fall risk assessment: [facility] Medical History Post-COVID chronic anxiety GERD (gastroesophageal reflux disease) Post-COVID syndrome BPV (benign positional vertigo) Vulvar leukoplakia HTN (hypertension) Surgical History Hx of esophagogastroduodenoscopy Hx of colonoscopy H/O tubal ligation Hx of cholecystectomy Family History Father HTN (hypertension) Depression Anxiety Mother Asthma Depression Anxiety CAD (coronary artery disease) Social History Housing: House Alcohol intake: never Patient Tobacco Use Status: Never used Tobacco e-Cigarette/Vaping Use: Never Used Second Hand Smoke Exposure: No service: No Current occupational status: unemployed and disabled Sexual orientation: Straight/Heterosexual Gender identity: Female Cognitive needs: No Hearing needs: No Vision needs: No Female Reproductive History Menstrual Age of Menarche: 11 Questionnaire Medicare Wellness Checkup What [age] your [age]?: 65-69 What gender do you identify with?: female During the past 4 weeks, how much have you been bothered by emotional problems such as feeling anxious, depressed, irritable, sad or downhearted, and blue?: extremely During the past 4 weeks, has your physical & emotional health limited your social activities with family, friends, neighbors, or groups?: extremely During the past 4 weeks, how much bodily pain have you generally had?: moderate pain During the past 4 weeks, was someone available to help you if you needed & wanted help?: yes, some Can you get to places out of walking distance without help? (For eg., can you tr damari alone on buses, taxis or drive your car?): No Can you go shopping for groceries or clothes without someone's help?: No Can you prepare your own meals?: No Can you do your housework without help?: No Because of any health problems, do you need the help of another person with your personal care needs such as eating, bathing, dressing or getting around the house?: No Can you handle your own money without help?: No During the past 4 weeks, how would you rate your health in general?: fair Are you having difficulties driving your car?: not applicable, I don't use a car Do you always fasten your seat belt when you are in a car?: yes, usually During past 4 weeks, have you been bothered by the following: sometimes: Trouble eating well? and Tiredness or fatigue? and often: Problems using the telephone? Have you fallen 2 or more times in the past year?: No Are you a smoker?: no During the past 4 weeks, how many drinks of wine, beer, or other alcoholic beverages did you have?: no alcohol at all Do you exercise for about 20 minutes 3 or more times a week?: no, I usually do not exercise this much Have you been given information to help with the following?: yes: Keeping track of your medications? and no: Hazards in your house that might hurt you? How often do you have trouble taking medicines the way you have been told to take them?: I always take medicine as prescribed What is your race?: or origin or descent Mini Mental State Exam (MMSE) Orientation What is the (year) (season) (date) (day) (month)?: year Where are we (state) (county) (town or city) (hospital) (floor)?: town or city Score Score: 2 Activity of Daily Living Bathing - sponge bath, tub bath or shower: receives no assistance (gets in/out by self, if usual bathing means Dressing - getting clothes from closets & drawers, including inner/outer garments & fasteners.: gets clothes & gets completely dressed without help Toileting - going to the 'toilet room' for urine/bowel elimination & cleaning self/arranging clothes: goes to toilet room, cleans self, arranges clothes without help Transfer: moves in & out of bed and chair without help (may use support object) Continence: controls urination/bowel movements completely by self Feeding: feeds self without help Total Score: 0 Information obtained from: patient Using telephone: independent Traveling: dependent Shopping: needs assistance Preparing meals: needs assistance Housework: needs assistance Taking medicine: independent Managing money: needs assistance PHQ-9 Over the last 2 weeks, how often have you been bothered by any of the following problems? 1. Little interest or pleasure in doing things: more than half the days 2. Feeling down, depressed, or hopeless: several days 3. Trouble falling or staying asleep, or sleeping too much: more than half the days 5. Poor appetite or overeating: several days 6. Feeling bad about yourself - or that you are a failure or have let yourself or your family down: more than half the days 7. Trouble concentrating on things, such as reading the newspaper or watching television: more than half the days 9. Thoughts that you would be better off or of hurting yourself in some way: several days 40379 - PHQ-9 Billing: Yes Source: Developed by Drs. Edin Dudley, Abi Millard, Sebastian Galvez and colleagues, with an educational radha from [employer]. Physical Exam Vital Signs: Last Vital Signs Temp 97.1 F 01/02/25 11:00 Pulse 116 H 01/02/25 11:00 BP 142/94 H 01/02/25 11:00 Pulse Ox 100 01/02/25 11:00 Oxygen Delivery Method Room Air 01/02/25 11:00 BMI result Body Mass Index 23.4 HEENT Other: hearing screening whisper test- passed Eyes Other: vision screening- failed-impaired vision- needs ophthalmology eval Other: urinary incontinence? No Neuro Other: balance Romberg- tandem walk test- walk-in turned test- rise from sit to stand- Assessment & Plan Assessment & Plan (1) Annual wellness visit: Code(s): Z00.00 - Encounter for general adult medical examination without abnormal findings Plan: As per HPI Medications: Refilled cholecalciferol (vitamin D3) 50 mcg PO DAILY 90 caps 1RF 90 days E55.9 - Vitamin D deficiency, unspecified fluticasone propionate 50 mcg/actuation (Flonase Allergy Relief) administer into each nostril twice a day for 1 weeks and daily 1 spray intranasal BID 16 grams 0RF R05.9 - Cough, unspecified tizanidine 4 mg PO BID PRN 30 tabs 2RF muscle spasticity 15 days M79.7 - Fibromyalgia Coding Level of Care Code Medicare First (G0438) Diagnoses Annual wellness visit Z00.00 CPT Codes Advance Care Planning - Time spent: 1-15 minutes, not on file ([id number]) Additional Codes PHQ-9 - 05071 - PHQ-9 Billing: Yes ([id number]) Advance Care Planning Advance Care Planning discussion: Exists, not on file Date of discussion: 01/02/25 Forms completed: JUVENAL Time spent: 1-15 minutes, not on file Actual minutes spent: 3
[2025-01-02 11:00] VITALS: BP 142/94; PULSE 116; TEMP 36.2; O2SAT 100; BMI 23.4
--- OUTSIDE RECORDS SUMMARY | 2025-01-02 12:21 | XMS_ITS | Clinical Summary ---
Author Organization [facility] Address [address] [place] [address] Care Team Providers Care Lumber Hacker Name Role Phone Unavailable Primary Care Provider Unavailabl e Social History Tobacco Use Types Packs/Day Years Used Date Smoking Tobacco: Never Assessed Comments Unknown Sex and Gender Information Value Date Recorded Sex Assigned at Not on file Legal Sex Female 11:32 PM EST Gender Identity Not on file Sexual Orientation Not on file Plan of Treatment Health Maintenance Due Date Last Done Comments Breast Cancer Screening 1968 DTaP,Tdap,and Td Vaccines (1 - Tdap) 1987 Hepatitis B Vaccines (1 of 3 - 19+ 3-dose series) 1987 Cervical Cancer Screening: P ap Smear 1989 Pneumococcal Vaccine: 50+ Ye ars (1 of 1 - PCV) 2018 Zoster Vaccines (1 of 2) 2018 Colorectal Cancer Screening: Colonoscopy 07/18/2022 Depression Screening 07/18/2022 HIV Screening 07/18/2022 Hepatitis C Screening 07/18/2022 Social Influencers of Health Screening 07/18/2022 COVID-19 Vaccine ( - 2023-2 5 season) 2024 Influenza Vaccine (Season Ended) 2025 HIB Vaccines Aged Out No longer eligi ble based on patient's age to complete this topic HPV Vaccines Aged Out No longer eligi ble based on patient's age to complete this topic Hepatitis A Vaccines Aged Out No long er eligible based on patient's age to complete this topic IPV Vaccines Aged Out No longer eligi ble based on patient's age to complete this topic MMR Vaccines Aged Out No longer eligi ble based on patient's age to complete this topic Meningococcal ACWY Vaccine Aged Out N o longer eligible based on patient's age to complete this topic Meningococcal B Vaccine Aged Out No l onger eligible based on patient's age to complete this topic Pneumococcal Vaccine: Pediat rics (0 to 5 Years) and At-Risk Patients (6 to 64 Years) Aged Out No longer eligible b ased on patient's age to complete this topic RSV Immunization Patients Un doug 20 months Aged Out No longer eligible b ased on patient's age to complete this topic Varicella Vaccines Aged Out No longer eligible based on patient's age to complete this topic
--- OUTSIDE RECORDS SUMMARY | 2025-01-02 12:21 | XMS_ITS | Data Portability ---
Author Organization [place] - [facility], Allergy Address [address] [facility] [address] [place] [address] Care Team Providers Care Clinical Immunologist Name Role Phone LIAM HATCH Primary Care Provider [phone] Assessment Encounter Date Assessment Date Assessment LastModified by Organization Details LastModified Time 06/22/2024 06/22/2024 54-year-old female presents for evaluation of sore throat. Exam is unremarkable. Sore throat seems to have resolved nicely with use of omeprazole. I have asked that she speak with her primary care who provided initial prescription. May benefit from switching to omeprazole to famotidine for more long-term use. Could also consider GI referral. Overall no recommendation was made from ENT standpoint. All questions were answered. [email or web address] Not available 06/22/2024 12:21:03 Plan of Treatment Reminders Order Date Submit Date Provider Last Modified By Organization Details Last Modified Time Details Appointments None record ed. Lab None record ed. Referral None record ed. Procedures None record ed. Surgeries None record ed. Imaging None record ed. Medication Orders None record ed. Patient TargetsNo targets recorded. Patient InstructionsNo instructions recorded. Reason for Referral None Reported. Problems Name Problem SNOMED Code Status Onset Date Resolution Date Notes Provider Name and Address Organization Details Recorded Time Sore throat 453252381 Active 2023 JODEE MORRISSEY PA-C [address] [address], [place], [phone], [place] - [facility] 12:21:07 Gastroesophage al reflux disease without esophagitis 503552469 Active 2023 JODEE MORRISSEY PA-C [address] [address], [place], [phone], [place] - [facility] 12:21:10 Problem Notes None recorded. Medical Equipment None Reported. Medications Name Sig Start Date Stop Date Status Note LastModified by Organization Details LastModified Time venlafaxine ER 37.5 mg capsule,ext ended release 24 hr TAKE 1 CAPSULE BY MOUTH EVERY DAY IN THE MORNING active Not Available Not Available No t Available ketoconazol e 2 % shampoo PLEASE SEE ATTACHED FOR DETAILED DIRECTION S 06/22 completed Not Available Not Available Not Available tizanidine 2 mg tablet TAKE 1 TABLET BY MOUTH EVERY 8 HOURS NEEDED MUSCLE SPASMS FOR 5 DAYS 06/22 completed Not Available Not Available Not Available tizanidine 4 mg tablet TAKE 1 TABLET BY MOUTH TWICE A DAY NEEDED FOR MUSCLE SPASTICIT Y FOR 15 DAYS 06/22 completed Not Available Not Available Not Available lorazepam 0.5 mg tablet TAKE 1 TABLET BY MOUTH ONCE A DAY NEEDED FOR SYMPTOMS OF SEVERE ANXIETY/P ANIC DISORDER. active Not Available Not Available No t Available meclizine 25 mg tablet TAKE 1 TABLET ORALLY 2 TIMES A DAY NEEDED FOR DIZZINESS FOR 15 DAYS 06/22 completed Not Available Not Available Not Available pantoprazol e 40 mg tablet,rosana yed release TAKE 1 TABLET BY MOUTH EVERY DAY HALF AN HOUR BEFORE BREAKFAST active Not Available Not Available No t Available buspirone 10 mg tablet TAKE 1 TABLET BY MOUTH TWICE A DAY FOR SYMPTOMS OF ANXIETY active Not Available Not Available No t Available fluticasone propionate 50 mcg/actuati on nasal spray,suspe nsion USE 1 SPRAY IN EACH NOSTRIL TWICE A DAY 06/22 completed Not Available Not Available Not Available loratadine 10 mg tablet TAKE 1 TABLET BY MOUTH EVERY DAY 06/22 completed Not Available Not Available Not Available Vitamin D3 50 mcg (2,000 unit) capsule TAKE 1 CAPSULE BY MOUTH EVERY DAY FOR 90 DAYS active Not Available Not Available No t Available Vitals Date Recorded Body height Body mass index (BMI) Body weight Provider Name and Address Organization Details Last Updated DateTime 06/22/2024 157.48 cm 25.1 kg/m2 49729.15 g Zoe Hull [place] - [facility] 06/22/2024 10:57:10 Social History None recorded. Functional Status None recorded. Mental Status None recorded. Family History Nothing Reported. Medical History No medical history recorded. Gynecological HistoryNo gynecological history recorded. Obstetrics History GPAL:G 0 P 0 0 0 0 Past Encounters Encounter ID Performer Location Encounter Start Date Encounter Closed Date Diagnosis/Indication Diagnosis SNOMED-CT Code Diagnosis ICD10 Code Diagnosis Note [id number] JODEE MORRISSEY PA-C [facility] [address] [place] [address] 06/22/2024 10:47:33 06/22/2024 15:32:12 Sore throat 818394008 J02.9 Gastroesop hageal reflux disease without esophagitis 292867006 K21.9 Health Concerns Section Related Observation LastModified by Organization Detai ls LastModified Time None Recorded Concern Status LastModified by Organization Details LastModified Time None Recorded Advance Directives Directive None Recorded Payers Insurance Date Sequence Insurance Name Policy Number Policy Nguyen Covered Member ID Nguyen Member ID Guarantor Name 07/26/2024 1 [place]ICARE B-[place]: [employer] Nolvia Enriquez [id number] Nolvia Enriquez 07/26/2024 2 [place] [facility] Nolvia Enriquez [id number] Nolvia Enriquez Notes Date Note Type Note Provider Name and Address Organization Details Recorded Time 06/22/2024 text/html 54-year-old femmyles tena presents for evaluation of sore throat. She was previously having daily sore throat and hoarseness about 8 months ago. Since then she has started omeprazole and is taking it every day and has noticed significant improvement. Now no longer having sore throat and only very occasional hoarseness. No pain or difficulty swallowing. No weight loss or hemoptysis. No history of tobacco use. JODEE MORRISSEY PA-C [address] [place] [address], [phone], [facility] - [facility] 06/22/2024 12:21:24 OBGyn Episode No OBEpisode recorded.
== END 2025-01-02 11:54 | disposition home or self-care (01) ==
LOC: HO.HMCH 10:55
PROVIDERS: PCP Physician Assistant; Visit Provider Physician Assistant
DX: Z00.00 Encounter for general adult medical examination without abnormal findings (principal)

== ENCOUNTER → 2025-01-02 10:55 | Outpatient (BNVA) | payer MEDICARE, MEDICAID, SELFPAY | PROVIDERS: PCP Physician Assistant; Visit Provider Physician Assistant | DX: Z00.00 Encounter for general adult medical examination without abnormal findings (principal); M79.7 Fibromyalgia; E55.9 Vitamin D deficiency, unspecified; I10 Essential (primary) hypertension | CPT/HCPCS: 96127 ==

== ENCOUNTER 2025-03-12 09:05 | Outpatient (AMB) | payer MEDICARE, MEDICAID, SELFPAY ==
[2025-03-12 09:06] VITALS: BP 144/84; PULSE 120; O2SAT 97; BMI 23.6
--- NOTE | 2025-03-12 09:06 | A.OFFVIS_ITS ---
Vital Signs 03/12/25 09:06 Height 5 ft 2 in Weight 129 lb BMI 23.6 BP 144/84 H Blood Pressure Location Rt brachial Position Sitting Pulse 120 H Pulse Source Pulse Oximeter Pulse Oximetry (%) 97 Oxygen Delivery Method Room Air Intake Visit Reasons: 6 mo f/u Intake Note: ESTABLISHED PATIENT for mgmt of GERD. Discuss EGD/[place] Chief Complaint; Pt denies any changes or new sx since last visit. Polisher Brass Required: No Polisher Brass Services: Polisher Brass Offered & Declined Accompanied by: Self / Same As Patient Allergies No Known Allergies Allergy (Verified 03/12/25 09:06) HPI HPI 6 mo f/u: Details: LAST VISIT Parosmia GERD (gastroesophageal reflux disease) Epigastric abdominal pain Salivary gland disorder Plan Will change PPI back to omeprazole. Avoid dietary triggers and late night snacking. Staying upright for minimum 3 hours after meals discussed with patient. No acute findings seen on x-ray. Patient will be due to go for colonoscopy next year. Patient had colonoscopy when she was 48 years old and it was normal. We might send her for upper endoscopy at the same time. Patient is agreeable to plan of care and verbalizes understanding of instructions. She was given the opportunity to ask questions and all questions answered. ? New omeprazole 40 mg PO DAILY 90 caps 3RF K21.9 Discontinued pantoprazole take one tablet half an hour before breakfast Discontinued Reason: Doctor's Order 40 mg PO DAILY 30 tabs 3RF K21.9 TODAY'S VISIT Patient is here today for follow-up. Patient reports that she is not taking any PPI. Was given script for omeprazole, however she stopped taking it as she was told that he should not be on it for long period of time as it is acid reflux occasional depending on what she eats. Occasional dyspepsia without dysphagia or odynophagia. Patient is not taking any pain [id number] to help her with this. Patient denies melena, hematochezia, unintentional weight loss or ribbon like stools. Reports that she is moving her bowels well. Occasional abdominal bloating and cramping depending on what she eats. Reports to have good appetite. [facility] Medical History Post-COVID chronic anxiety GERD (gastroesophageal reflux disease) Post-COVID syndrome BPV (benign positional vertigo) Vulvar leukoplakia HTN (hypertension) Surgical History (Updated 03/12/25 @ 09:09 by Noah Mariano [facility]) Status post surgical removal of malignant neoplasm of skin Hx of esophagogastroduodenoscopy Hx of colonoscopy H/O tubal ligation Hx of cholecystectomy Family History Father HTN (hypertension) Depression Anxiety Mother Asthma Depression Anxiety CAD (coronary artery disease) Social History Housing: House Alcohol intake: never Patient Tobacco Use Status: Never used Tobacco e-Cigarette/Vaping Use: Never Used Second Hand Smoke Exposure: No service: No Current occupational status: unemployed and disabled Sexual orientation: Straight/Heterosexual Gender identity: Female Cognitive needs: No Hearing needs: No Vision needs: No Female Reproductive History Menstrual Age of Menarche: 11 Review of Systems Const Denies weight gain and Denies weight loss ENT Reports no additional complaints, Denies dysphagia and Denies odynophagia Card Reports no additional complaints Resp Reports no additional complaints GI Denies abdominal pain, Denies belching, Denies melena, Denies bloating, Denies change in bowel habits, Denies dysphagia, Denies excessive flatus, Denies dyspepsia, Reports heartburn (Occasional), Denies diarrhea, Denies loose stools, Denies nausea, Denies odynophagia and Denies vomiting Reports no additional complaints Musc Reports no additional complaints Neuro Reports no additional complaints Psych Reports no additional complaints Endo Reports no additional complaints Physical Exam Const General: healthy appearing, no acute distress and well developed Nutritional Appearance: well nourished Orientation/consciousness: patient oriented x3 Resp Effort & Inspection: normal respiratory effort, able to speak in complete sentences, no tracheal deviation and symmetric chest movement Auscultation: clear to auscultation bilaterally Cardio Rate: regular rate GI Inspection: Yes normal to inspection and No distended Palpation (GI): Soft to palpation, not firm, nontender and No hepatosplenomegaly present Auscultation: normal bowel sounds General: Yes no CVA tenderness Back/Spine/Pelvis Back: no CVA tenderness Skin General skin exam: elasticity normal, turgor normal and dry skin Neuro General: patient oriented x3 Psych Appearance: grossly normal Mental Status: mental status grossly normal Assessment & Plan Assessment & Plan (1) Parosmia: Code(s): R43.1 - Parosmia Category: Medical (2) GERD (gastroesophageal reflux disease): Code(s): K21.9 - Gastro-esophageal reflux disease without esophagitis Category: Medical Qualifiers: Esophagitis presence: without esophagitis Qualified Code(s): K21.9 - Gastro-esophageal reflux disease without esophagitis (3) Epigastric abdominal pain: Code(s): R10.13 - Epigastric pain Category: Medical (4) Disorder of salivary gland: Code(s): K11.9 - Disease of salivary gland, unspecified Plan Patient will take Pepcid as needed for reflux. Avoid dietary triggers in late night snacking. Staying upright for minimal 3 hours after meals discussed with patient. Occasional abdominal cramping, patient encouraged to increase fluid intake and activity to promote better bowel motility. Return in 3 months to discuss going for upper endoscopy and colonoscopy. Patient is agreeable to current plan of care and verbalizes understanding of instructions. She was given the opportunity to ask questions and all questions answered. Thank you for allowing me to participate in her care Medications: New famotidine (Pepcid) 20 mg PO DAILY 30 tabs 3RF K21.9 - Gastro-esophageal reflux disease without esophagitis Discontinued omeprazole Discontinued Reason: Doctor's Order 40 mg PO DAILY 90 caps 3RF K21.9 - Gastro-esophageal reflux disease without esophagitis Coding Level of Care Code Est Pt Level 3 (27721) Diagnoses Parosmia R43.1 Gastroesophageal reflux disease without esophagitis K21.9 Esophagitis presence: without esophagitis Epigastric abdominal pain R10.13 Disorder of salivary gland K11.9 Time Spent (min) 25 Comment 15 minutes spent with patient and additional 10 minutes spent reviewing her records
--- OUTSIDE RECORDS SUMMARY | 2025-03-12 09:29 | XMS_ITS | Data Portability ---
Author Organization [place] - [facility], Allergy Address [address] [facility] [address] [place] [address] Care Team Providers Care Serging Machine Operator Automatic Name Role Phone LIAM HATCH Primary Care Provider Assessment Encounter Date Assessment Date Assessment LastModified [...] from ENT standpoint. All questions were answered. Not available 06/22/2024 12:21:03 Plan of Treatment [...] Address Organization Details Recorded Time Sore throat 167788327 Active 2023 JODEE MORRISSEY PA-C [address] [address], [place], [phone], [facility] - [facility] 12:21:07 Gastroesophage al reflux disease without esophagitis [id number] Active 2023 JODEE MORRISSEY PA-C [address] [address], [place], [phone], [place] - [facility] 12:21:10 Problem Notes None recorded. Medical Equipment [...] Updated DateTime 06/22/2024 157.48 cm 25.1 kg/m2 83756.15 g Zoe Hull [place] - [facility] 06/22/2024 10:57:10 Social History None recorded. Functional Status None recorded. Mental Status None recorded. Family History Nothing Reported. Medical History No medical history recorded. Gynecological HistoryNo gynecological history recorded. Obstetrics History GPAL:G 0 P 0 0 0 0 Past Encounters Encounter ID Performer Location Encounter Start Date Encounter Closed Date Diagnosis/Indication Diagnosis SNOMED-CT Code Diagnosis ICD10 Code Diagnosis Note [id number] JODEE MORRISSEY PA-C [facility] [address] [address] 06/22/2024 10:47:33 06/22/2024 15:32:12 Sore throat 550247149 J02.9 Gastroesop hageal reflux disease without esophagitis 224194533 K21.9 Health Concerns Section Related Observation LastModified by Organization Detai ls LastModified Time None Recorded Concern Status LastModified by Organization Details LastModified Time None Recorded Advance Directives Directive None Recorded Payers Insurance Date Sequence Insurance Name Policy Number Policy Nguyen Covered Member ID Nguyen Member ID Guarantor Name 07/26/2024 1 [place]: [employer] Nolvia Enriquez [id number] Nolvia Enriquez 07/26/2024 2 [place] [facility] Nolvia Enriquez [id number] Nolvia Enriquez OBGyn Episode No OBEpisode recorded.
--- OUTSIDE RECORDS SUMMARY | 2025-03-12 09:29 | XMS_ITS | Clinical Summary ---
Author Organization [facility] ity Address [address] [place] [address] Care Team Providers Care Wireless Operator Name Role Phone Unavailable Primary Care Provider [...] 2018 Zoster Vaccines (1 of 2) 2018 COVID-19 Vaccine ( - 2023-2 5 season) 2024 Depression Screening 08/15/2024 Influenza Vaccine (#1) 2025 HIB Vaccines Aged Out No longer [...]
== END 2025-03-12 09:23 | disposition home or self-care (01) ==
PROVIDERS: PCP Physician Assistant; Visit Provider Nurse Practitioner Family
DX: R43.1 Parosmia (principal); K21.9 Gastro-esophageal reflux disease without esophagitis; R10.13 Epigastric pain; K11.9 Disease of salivary gland, unspecified
CPT/HCPCS: 99213

== ENCOUNTER → 2025-03-12 09:05 | Outpatient (BNVA) | payer MEDICARE, MEDICAID, SELFPAY | PROVIDERS: PCP Physician Assistant; Visit Provider Nurse Practitioner Family | DX: R43.1 Parosmia (principal); K21.9 Gastro-esophageal reflux disease without esophagitis; K11.9 Disease of salivary gland, unspecified; R10.13 Epigastric pain | CPT/HCPCS: 99212 ==

== ENCOUNTER 2025-07-18 08:39 | Outpatient (AMB) | payer MEDICARE, MEDICAID, SELFPAY ==
--- NOTE | 2025-07-18 08:42 | MHC.PC.OV ---
Vital Signs 07/18/25 08:44 Height 5 ft 2 in Weight 131 lb 4 oz BMI 24.0 BP 124/80 Blood Pressure Location Lt brachial Position Sitting Respiration 16 Pulse 102 H Pulse Source Pulse Oximeter Temp 97.3 F Temp Source Temporal Artery Scan Pulse Oximetry (%) 97 Oxygen Delivery Method Room Air Intake Visit Reasons: 6mth f/u Garbage Collector Supervisor Required: No Accompanied by: Self / Same As Patient Allergies No Known Allergies Allergy (Verified 07/18/25 08:53) Medication List - Last Reconciled 07/18/25 by Stephen Rothman PA-C buspirone 10 mg PO BID cholecalciferol (vitamin D3) 50 mcg PO DAILY 90 days famotidine (Pepcid) 20 mg PO DAILY fluticasone propionate 50 mcg/actuation (Flonase Allergy Relief) 1 spray intranasal BID ketoconazole 2% topical loratadine 10 mg PO DAILY lorazepam mg PO meclizine 25 mg PO BID PRN 15 days tizanidine 4 mg PO BID PRN 15 days tretinoin 0.025% appl topical venlafaxine ER 37.5 mg PO DAILY Tobacco use date assessed: 07/18/25 Dental Screening Dental Screen Date: 07/18/25 Did you have a dental visit in the last 12 months?: Yes Did you have a dental problem in the last 6 months where you did not have access to dental care?: No Was dental information given to patient?: Patient has dentist HPI 6mth f/u HPI Details Pt is a 55 y/o F here today for a follow-up visit. Patient has a past medical history significant hypertension, GERD,. Fibromyalgia--> she reports her pain has still been evident though tizanidine has been effective for reducing her pain. . Anxiety:? Patient is followed by a psychiatrist and a mental health therapist..? Continues on Effexor and buspirone. ? Has been started on lorazepam 0.5 mg p.r.n. for anxious symptoms which she reports has been helpful at times. .. Hypertension:? Blood pressure acceptable today in office. She does not monitor blood pressure regularly at home. Was on blood pressure medication (metoprolol) in the past though had side effects to a lot of the blood pressure medications including lisinopril, metoprolol and amlodipine. ---> Nolvia declines the flu shot vaccine today [facility] Medical History Post-COVID chronic anxiety GERD (gastroesophageal reflux disease) Post-COVID syndrome BPV (benign positional vertigo) Vulvar leukoplakia HTN (hypertension) Surgical History Status post surgical removal of malignant neoplasm of skin Hx of esophagogastroduodenoscopy Hx of colonoscopy H/O tubal ligation Hx of cholecystectomy Family History Father HTN (hypertension) Depression Anxiety Mother Asthma Depression Anxiety CAD (coronary artery disease) Social History Housing: House Alcohol intake: never Patient Tobacco Use Status: Never used Tobacco e-Cigarette/Vaping Use: Never Used Second Hand Smoke Exposure: No service: No Current occupational status: unemployed and disabled Sexual orientation: Straight/Heterosexual Gender identity: Female Cognitive needs: No Hearing needs: No Vision needs: No Female Reproductive History Menstrual Age of Menarche: 11 Questionnaire PHQ-9 Over the last 2 weeks, how often have you been bothered by any of the following problems? 1. Little interest or pleasure in doing things: several days 2. Feeling down, depressed, or hopeless: nearly every day 3. Trouble falling or staying asleep, or sleeping too much: several days 4. Feeling tired or having little energy: more than half the days 5. Poor appetite or overeating: more than half the days 6. Feeling bad about yourself - or that you are a failure or have let yourself or your family down: several days 7. Trouble concentrating on things, such as reading the newspaper or watching television: more than half the days 8. Moving or speaking so slowly that other people could have noticed. Or the opposite - being so fidgety or restless that you have been moving around a lot more than usual: several days 9. Thoughts that you would be better off or of hurting yourself in some way: not at all Total score: 13 Depression Screening Interpretation: Positive Depression Screening Follow-up: Existing condition and In treatment Depression Screening Done: Yes 33829 - PHQ-9 Billing: Yes Source: Developed by Drs. Edin Dudley, Abi Millard, Sebastian Galvez and colleagues, with an educational radha from [email or web address]. Thrive Questionnaire Date Thrive assessed: 08/02/24 I am a: Patient What is your living situation today?: I have a steady place to live Within the past 12 months, did the food you bought not last and you didn't have the money to get more?: Never true Within the past 12 months, did you worry whether your food would run out before you got money to buy more?: Never true Do you have trouble paying for medicines?: No Do you have trouble getting transportation to medical appointments?: No Do you have trouble paying your heating and electricity bill?: Yes Do you have trouble taking care of your child, family member or friend?: No Do you have trouble with day-to-day activities such as bathing, preparing meals, shopping, managing finances, etc.?: Yes Are you currently unemployed and looking for a job?: Yes Are you interested in more education?: No Please select the resources that you would like help with: None Currently or been in a relationship where the following occur: No concerns reported THRIVE Score: 1 AUDIT C Alcohol Use Questionnaire (AUDIT-C) 1. How often do you have a drink containing alcohol?: Never 3. How often do you have six or more drinks on one occasion?: Never Total Score: 0 CINTIA-7 AMB Questionnaire CINTIA-7 Date CINTIA - 7 assessed: 08/02/24 Feeling nervous, anxious, or on edge: 3 = Nearly every day Not being able to stop or control worryin = Nearly every day Worrying too much about different things: 3 = Nearly every day Trouble relaxin = Nearly every day Being so restless that it is hard to sit still: 3 = Nearly every day Becoming easily annoyed or irritable: 3 = Nearly every day Feeling afraid as if something awful might happen: 3 = Nearly every day Total CINTIA-7 score (0-4 normal; 5-9 mild; 10-14 moderate; 15-21 severe): 21 Source: Developed by Drs. Edin Dudley, Sebastian Valentine and colleagues, with an educational radha from [email or web address]. CINTIA-7 Assessment Billing CINTIA-7 Assessment Tool: CINTIA-7 Assessment 09306 Review of Systems Const Denies headache(s) Eyes Denies loss of vision ENT Denies vertigo, Denies dizziness, Denies headache(s) and Denies sore throat Card Denies chest pain, Denies leg edema and Denies lightheadedness Resp Denies cough, Denies hemoptysis and Denies wheezing GI Denies abdominal pain, Denies melena, Denies constipation, Denies diarrhea and Denies vomiting Denies urinary frequency, Denies dysuria and Denies urinary urgency Musc Denies arthralgias, Denies joint swelling, Denies numbness and Denies tingling Neuro Denies Abnormal speech present, Denies behavioral changes, Denies vertigo, Denies dizziness, Denies headache(s), Denies loss of vision, Denies memory loss, Denies numbness and Denies tingling Psych Denies anxiety, Denies behavioral changes, Denies depression, Denies memory loss and Denies panic attacks Torrey/Lymph Denies easy bleeding and Denies easy bruising Aller/Immun Denies wheezing Physical exam (Primary Care) Vital Signs: Last Vital Signs Temp 97.3 F 07/18/25 08:44 Pulse 102 H 07/18/25 08:44 Resp 16 07/18/25 08:44 BP 124/80 07/18/25 08:44 Pulse Ox 97 07/18/25 08:44 Oxygen Delivery Method Room Air 07/18/25 08:44 BMI result Body Mass Index 24.0 Tobacco/Smoking Status: Tobacco use Status Tobacco use date assessed 07/18/25 07/18/25 08:48 Patient Tobacco Use Status Never used Tobacco 07/18/25 08:48 e-Cigarette/Vaping Use Never Used 07/18/25 08:48 PHQ-9: PHQ-9 Score PHQ-9: Total score 13 07/18/25 08:48 Depression Screening Interpretation: Positive Depression Screening Follow-up: Existing condition and In treatment Thrive Assessment: Date of Thrive Assessment Date Thrive assessed 08/02/24 07/18/25 08:48 Currently or been in a relationship where the following occur: No concerns reported Const General: healthy appearing, no acute distress, alert and awake Nutritional Appearance: well nourished Orientation/consciousness: oriented to person, oriented to place and oriented to time HENMN Ears: TM's normal bilaterally General nose exam: Normal nasal mucous membranes and turbinates present Eyes Conjunctivae: conjunctivae normal Sclerae: sclerae normal Pupils: Equal, round and reactive pupils present Neck Neck: Yes no lymphadenopathy and Yes no JVD Thyroid: Thyroid normal Carotids: no bruits Resp Effort & Inspection: normal respiratory effort and not tachypneic Auscultation: no crackles, no rales, no rhonchi and no wheezes Cardio Rate: regular rate Rhythm: regular rhythm Heart sounds: no murmurs and normal S1 and S2 GI Palpation (GI): Soft to palpation, nontender, no hepatomegaly and no splenomegaly Auscultation: normal bowel sounds Skin General skin exam: no rashes or lesions noted and dry skin Neuro General: oriented to person, oriented to place and oriented to time Cranial nerves: Yes Equal, round and reactive pupils present Speech: No Abnormal speech present Gait exam (Neuro): Normal gait present Motor exam (neuro): no tremor noted Extrem Right upper extremity: full ROM Left upper extremity: full ROM Right lower extremity: full ROM; no edema Left lower extremity: full ROM; no edema Psych Mental Status: mental status grossly normal Speech and movement: Normal speech and movement present Affect: normal affect Attitude: cooperative Thought process: Normal thought process present Coding Level of Care Code Est Pt Level 4 (38065) Diagnoses CINTIA (generalized anxiety disorder) F41.1 Essential hypertension I10 Hypertension type: essential hypertension Fibromyalgia M79.7 Additional Codes PHQ-9 - 25323 - PHQ-9 Billing: Yes ([id number]) CINTIA-7 Assessment Billing - CINTIA-7 Assessment Tool: CINTIA-7 Assessment 02933 ([id number]) Assessment & Plan Assessment & Plan (1) CINTIA (generalized anxiety disorder): Code(s): F41.1 - Generalized anxiety disorder Category: Medical Plan: Patient does speak with a mental health therapist every 2 weeks continues on venlafaxine and BuSpar with good effect. Only using limited amounts of lorazepam (2) HTN (hypertension): Code(s): I10 - Essential (primary) hypertension Category: Medical Qualifiers: Hypertension type: essential hypertension Qualified Code(s): I10 - Essential (primary) hypertension Plan: Patient's blood pressure acceptable today in office. She is able to manage her blood pressure without medication at this point. Goal blood pressures to remain below 140/90 (3) Fibromyalgia: Code(s): M79.7 - Fibromyalgia Category: Medical Plan: As per HPI patient reports she has gets good relief of her pain with p.r.n. use of tizanidine. She is speaking with a mental health therapies every week. Medications: Refilled tizanidine 4 mg PO BID PRN 30 tabs 2RF muscle spasticity 15 days M79.7 - Fibromyalgia
[2025-07-18 08:44] VITALS: BP 124/80; PULSE 102; RESP 16; TEMP 36.3; O2SAT 97; BMI 24.0
--- OUTSIDE RECORDS SUMMARY | 2025-07-18 09:26 | XMS_ITS | Clinical Summary ---
Author Organization [facility] ity Address [address] [place] [address] Care Team Providers Care Counter Waitress/Waiter Name Role Phone Unavailable Primary Care Provider [...] 2018 Zoster Vaccines (1 of 2) 2018 Depression Screening 08/15/2024 COVID-19 Vaccine ( - 2024-2 6 season) 2025 Influenza Vaccine (#1) 2025 RSV Immunization Adult Patie nts (1 - 1-dose 75+ series) 2043 HIB Vaccines Aged Out No longer eligi [...]
== END 2025-07-18 09:04 | disposition home or self-care (01) ==
LOC: HO.HMCH 08:40
PROVIDERS: PCP Physician Assistant; Visit Provider Physician Assistant
DX: F41.1 Generalized anxiety disorder (principal); I10 Essential (primary) hypertension; M79.7 Fibromyalgia

== ENCOUNTER → 2025-07-18 08:39 | Outpatient (BNVA) | payer MEDICARE, MEDICAID, SELFPAY | PROVIDERS: PCP Physician Assistant; Visit Provider Physician Assistant | DX: M79.7 Fibromyalgia (principal); F41.1 Generalized anxiety disorder; I10 Essential (primary) hypertension; K21.9 Gastro-esophageal reflux disease without esophagitis; Z13.31 Encounter for screening for depression | CPT/HCPCS: 96127; 99212 ==